=== PATIENT | female | born 1930 | race Caucasian/White ===

== ENCOUNTER 2018-03-28 21:20 | Inpatient (IN) | payer MEDICARE ==
[2018-03-28 21:46] LABS: #Eosinphils 0.1 thou/uL (0.0-0.7); #Lymphocytes 1.7 thou/uL (1.20-3.40); #Monocytes 0.9 thou/uL (0.11-0.59); #Neutrophils 6.5 thou/uL (1.40-6.50); %Basophils 0.5 % (0.0-1.0); %Eosinophils 0.6 % (0.0-10.0); %Monocytes 9.9 % (0.0-10.0); Hemoglobin 12.3 g/dL (12.0-16.0); Mean Corpuscular HGB CONC 33.8 g/dL (32.0-36.0); Mean Corpuscular Hemoglobin 29.4 pg (27.0-31.0); Mean Corpuscular Volume 87.1 fl (81.0-99.0); Platelet Count 309 thou/uL (130-400); RBC Distribution Width 12.6 % (11.5-14.5); Red Blood Cell (RBC) Count 4.17 mill/uL (4.20-5.40); White Blood Cell (WBC) Count 9.2 thou/uL (4.8-10.8)
[2018-03-28 22:18] LABS: CKMB 2.3 ng/mL (0-6.6); Troponin I Less than 0.010 ng/mL (< 0.028)
[2018-03-28] MEDS ORDERED: Diltiazem 125 MG/25 ML ONE (22:22)
[2018-03-28 22:23] LABS: ALT (SGPT) 11 U/L (8-55); AST (SGOT) 26 U/L (5-34); Albumin 3.8 g/dL (3.4-4.8); Alkaline Phosphatase 116 U/L (40-150); Anion Gap 15 mmol/L (10-20); BUN (Urea Nitrogen) 12 mg/dL (9.8-20.1); Bilirubin, Total 0.4 mg/dL (0.2-1.2); Calc. Creatinine Clearance 0 mL/min (70-130); Calcium 8.9 mg/dL (7.8-10.44); Carbon Dioxide 20 mmol/L (23-31); Chloride 103 mmol/L (98-107); Estimated GFR-MDRD 71; Globulin 3.9 g/dL (2.4-3.5); Glucose 111 mg/dL (83-110); Potassium 3.3 mmol/L (3.5-5.1); Protein, Total 7.7 g/dL (6.0-8.3); Sodium 135 mmol/L (136-145)
[2018-03-28] MEDS ORDERED: Diltiazem HCl 125 MG, Admixture Fee 1 EACH in Sodium Chloride 0.9% 100 ML IVPB SCH (22:45)
--- NOTE | 2018-03-28 22:56 | RAD ---
RADIOGRAPH CHEST 1 VIEW: HISTORY: An 87-year-old female with dyspnea and cough. FINDINGS: There is hyperinflation of the lungs, consistent with COPD. There is no evidence of air space densit y, pneumothorax, or pulmonary edema. The lateral costophrenic angles are sharp. IMPRESSION: 1) No acute pulmonary findings. 2) Emphysema. zac [] POS: [facility]
[2018-03-29 01:11] LABS: Troponin I 0.016 ng/mL (< 0.028)
[2018-03-29] MEDS ORDERED: Ondansetron ODT 4 MG TAB PO PRN (01:22)
[2018-03-29] MEDS ORDERED: Acetaminophen 325 MG TAB PO PRN (01:22)
[2018-03-29] MEDS ORDERED: HYDROcodone/Acetaminophen 5/325 mg Tablet PO PRN (01:22)
[2018-03-29 01:26] VITALS: BMI 18.0
--- NOTE | 2018-03-29 02:51 | HP ---
DATE OF ADMISSION: 03/29/2018 CHIEF COMPLAINT: Shortness of breath. HISTORY OF PRESENT ILLNESS: This is an 87-year-old white female with severe hearing loss with known history of atrial fibrillation and congestive heart failure. She came in from home with complaint of sudden onset of shortness of breath with no chest pain and which she was noted to have atrial fibril lation with RVR with a heart rate of 130 and she was started on Cardizem drip following a Cardizem yisel cristobal. The patient's rate was not controlled, so she was continued on the Cardizem drip and she was se en on the floor. She was alert and oriented, but she is very hard of hearing, unable to get any hist ory at this time. The patient's granddaughter was here, who did mention the patient is a DNR and thi s has been discussed. The patient was very comfortable, not having any chest pain at this time. No dizziness, no nausea, no vomiting or diarrhea. PAST MEDICAL HISTORY: 1. Hypertension. 2. Senile dementia. 3. History of ovarian malignancy. 4. History of fracture to the left cervical spine. 5. History of paroxysmal atrial fibrillation. 6. History of severe hearing loss. PAST SURGICAL HISTORY: Right hip surgery and hysterectomy. SOCIAL HISTORY: The patient is at residential. No history of alcohol, no history of illicit drug u se. Granddaughter is a power of deputy prosecuting attorney and this is confirmed today and she had confirmed about cod e status. The patient is a DNR. FAMILY HISTORY: No significant family history of coronary artery disease. Family history has been t horoughly reviewed. ALLERGIES: PSEUDOEPHEDRINE. HOME MEDICATIONS: 1. Lisinopril 10 mg p.o. daily. 2. Metoprolol 20 mg p.o. at bedtime. REVIEW OF SYSTEMS: Review of systems has been obtained and reviewed with the patient thoroughly and found to be negative at this time except the ones described in the HPI. The following complete revie w of systems was negative, unless otherwise mentioned in the HPI or below: Constitutional: Weight l oss or gain, sense of well-being, ability to conduct usual activities, exercise tolerance. Skin/[place] st: Rash, itching, changes in hair growth or loss, nail changes, breast lumps, tenderness, swelling, nipple discharge. Eyes: Vision, double vision, tearing, blind spots, pain. ENT/Mouth: Headaches (location, time of onset, duration, precipitating factors), vertigo, lightheadedness, injury. Vision, double vision, tearing, blind spots, pain, nose bleeding, colds, obstruction, discharge, dental diff iculties, gingival bleeding, dentures, neck stiffness, pain, tenderness, masses in thyroid or other a reas. Cardiovascular: Precordial pain, substernal distress, palpitations, syncope, dyspnea on exert ion, orthopnea, nocturnal paroxysmal dyspnea, edema, cyanosis, hypertension, heart murmurs, varicosit ies, phlebitis, claudication. Respiratory: Pain, shortness of breath, wheezing, stridor, cough, hem optysis, fever or night sweats. Gastrointestinal: Poor appetite, dysphagia, indigestion, abdominal pain, heartburn, eructation, nausea, vomiting, hematemesis, jaundice, constipation, or diarrhea, abno rmal stools (taj-colored, tarry, bloody, greasy, foul smelling), flatulence, hemorrhoids, recent anna nges in bowel habits. Genitourinary: Urgency, frequency, dysuria, nocturia, hematuria, polyuria, ol iguria, unusual (or change in) color of urine, stones, hesitancy, change in size of stream, dribbling , acute retention or incontinence, libido, potency. Musculoskeletal: Pain, swelling, redness or hea t of muscles or joints, limitation, of motion, muscular weakness, atrophy, cramps. Neurologic/Psychi atric: Convulsions, paralyses, tremor, incoordination, paresthesias, difficulties with memory of spe ech, sensory or motor disturbances, or muscular coordination (ataxia, tremor), emotional problems, an xiety, depression, previous psychiatric care, unusual perceptions, hallucinations. Allergy/Immunolog ic: Skin rash, anemia, bleeding tendency, polydipsia, polyuria, intolerance to heat or cold. PHYSICAL EXAMINATION: VITAL SIGNS: Blood pressure was 147/68, heart rate is 80, respirations 18, and saturation 98% on karina m air. GENERAL: The patient is moderately built and moderately nourished. She does not appear to be in acu te distress. She is alert, oriented x3. HEENT: Atraumatic, normocephalic. PERRLA. Extraocular movements are intact. CARDIOVASCULAR: S1, S2 normal. No murmurs, rubs or gallops. Irregularly irregular rhythm. LUNGS: Bilateral air entry was equal. No wheezing, no crackles. ABDOMEN: Soft, nontender, no guarding, no rebound tenderness. Bowel sounds normal. MUSCULOSKELETAL: No calf tenderness. No pedal edema. No joint tenderness, no joint swelling. SKIN: No cyanosis, no erythema, no rash, no pallor. CENTRAL NERVOUS SYSTEM: Cranial nerve examination II-XII intact. No focal deficits were noted. PSYCHIATRIC: No signs of suicidal ideation. No signs of milan. NECK: No thyromegaly, no JVD. LABORATORY DATA: WBC is 9.2, hemoglobin is 12.3, hematocrit is 36.3, platelets 309. Sodium is 135, potassium 3.3, chloride is 103, bicarbonate is 20, BUN is 12, creatinine is 0.77. BNP 134. Troponin 0.016. ASSESSMENT: 1. Atrial fibrillation with rapid ventricular rate. 2. Chronic congestive heart failure. No evidence of an exacerbation. 3. Hyponatremia. 4. Hypokalemia. 5. Type 2 diabetes mellitus. PLAN: 1. Plan is to closely monitor this patient. We will continue the Cardizem drip at this time and slo wly transitioned to p.o. Cardizem once the rate is controlled. We will do a 2D echo in the morning t o look for any evidence of wall motion abnormality or any worsening congestive heart failure. We madina l consult Cardiology at this time. 2. The patient has low sodium level, likely from hyponatremia. We will continue the patient on norm al saline at this time. 3. The patient has history of hypertension. We will restart the patient on lisinopril 10 mg p.o. da . 4. History of severe dementia and also has a history of severe hearing loss. 5. Deep venous thrombosis prophylaxis. Lovenox 40 mg subcutaneously daily. I spent 70 minutes with this patient.
[2018-03-29 05:39] LABS: #Basophils 0.1 thou/uL (0.0-0.2); #Eosinphils 0.1 thou/uL (0.0-0.7); #Lymphocytes 1.9 thou/uL (1.20-3.40); #Monocytes 0.7 thou/uL (0.11-0.59); #Neutrophils 3.1 thou/uL (1.40-6.50); %Eosinophils 1.5 % (0.0-10.0); %Lymphocytes 31.9 % (21.0-51.0); %Monocytes 12.8 % (0.0-10.0); %Neutrophils 52.8 % (42.0-75.0); Hemoglobin 11.5 g/dL (12.0-16.0); Mean Corpuscular HGB CONC 33.6 g/dL (32.0-36.0); Mean Corpuscular Hemoglobin 29.1 pg (27.0-31.0); Mean Corpuscular Volume 86.8 fl (81.0-99.0); Mean Platelet Volume 6.8 fL (7.4-10.4); Platelet Count 312 thou/uL (130-400); RBC Distribution Width 12.2 % (11.5-14.5); Red Blood Cell (RBC) Count 3.96 mill/uL (4.20-5.40); White Blood Cell (WBC) Count 5.8 thou/uL (4.8-10.8)
[2018-03-29 05:49] LABS: Anion Gap 10 mmol/L (10-20); BUN (Urea Nitrogen) 10 mg/dL (9.8-20.1); Calc. Creatinine Clearance 44 mL/min (70-130); Calcium 8.6 mg/dL (7.8-10.44); Carbon Dioxide 26 mmol/L (23-31); Chloride 107 mmol/L (98-107); Estimated GFR-MDRD 83; Glucose 105 mg/dL (83-110); Sodium 140 mmol/L (136-145)
[2018-03-29 05:53] LABS: Potassium 2.5 mmol/L (3.5-5.1)
[2018-03-29 06:07] LABS: Troponin I 0.032 ng/mL (< 0.028)
[2018-03-29] MEDS ORDERED: Potassium Chloride 20 MEQ TAB PO SCH (06:15)
[2018-03-29] MEDS ORDERED: Famotidine 20 MG TAB PO SCH (09:00)
[2018-03-29 10:34] LABS: Potassium 3.2 mmol/L (3.5-5.1)
[2018-03-29] MEDS: Docusate 100 MG CAP PO SCH ×2 (10:49→19:53)
[2018-03-29] MEDS: Lisinopril 10 MG TAB PO SCH (10:50)
[2018-03-29] MEDS: Enoxaparin Sodium 40 MG/0.4 ML SYRINGE SC SCH (10:50)
[2018-03-29] MEDS ORDERED: Diltiazem HCl 125 MG, Admixture Fee 1 EACH in Sodium Chloride 0.9% 100 ML IVPB SCH (15:00)
--- NOTE | 2018-03-29 15:51 | PDOC.EVN ---
Event Note - Event Note Event Note: Chart reviewed. Pt seen, will follow.
[2018-03-29] MEDS: Amiodarone 200 MG TAB PO SCH (19:53)
--- NOTE | 2018-03-29 22:38 | CON ---
HISTORY OF PRESENT ILLNESS: The patient is an 87-year-old woman with a history of paroxysmal atrial fibrillation who presented with palpitations and dyspnea. The patient has a history of paroxysmal atrial fibrillation. Sshe also suffers from dementia. The patient lives with her granddaughter. The patient's granddaughter noticed that she was very short of breath and reported having palpitations. PAST MEDICAL HISTORY: 1. Dementia. 2. Hypertension. 3. Paroxysmal atrial fibrillation. 4. History of ovarian malignancy. PAST SURGICAL HISTORY: Hysterectomy and hip surgery. SOCIAL HISTORY: She lives with her granddaughter. Nonsmoker. FAMILY HISTORY: No strong family history of heart disease. MEDICATIONS: Lisinopril 10 daily, metoprolol 25 XL daily. ALLERGIES: PSEUDOEPHEDRINE, PHENYLEPHRINE, and SUDAFED. REVIEW OF SYSTEMS: Ten-point system unremarkable. PHYSICAL EXAMINATION: GENERAL: This is an elderly woman in no acute distress. VITAL SIGNS: Blood pressure was 109/53. NECK: Showed no jugular vein distention. LUNGS: Clear to auscultation. HEART: Regular rate and rhythm. Normal S1, S2 with a 2/6 systolic ejection murmur. ABDOMEN: Nondistended. EXTREMITIES: No edema. VASCULAR: Radial pulses are 2+. LABORATORY RESULTS: Sodium was 140, potassium 3.2, chloride 107, bicarbonate 26 , BUN 10, creatinine 0.67, troponin was 0.032. BNP 134. White blood cell count 5.8, hemoglobin 11.5, hematocrit 34.4, platelets are 312,00. IMAGING: Her EKG revealed atrial fibrillation with a marked ST-T wave abnormality suggestive of ischemia. IMPRESSION: 1. Paroxysmal atrial fibrillation. 2. Hypertension. 3. Probable coronary artery disease. 4. Dementia. This woman with dementia presents with recurrent atrial fibrillation. She is a poor candidate due for anticoagulation with a history of falling according to her granddaughter and dementia. I would recommend that amiodarone be utilized to keep her out of atrial fibrillation to lower her risk of a thromboembolic event as well as to prevent ischemia. PLAN: 1. Discontinue IV Cardizem. 2. Start amiodarone. 3. Check echocardiogram. [facility]
[2018-03-30] MEDS: Docusate 100 MG CAP PO SCH ×2 (09:20→20:58)
[2018-03-30] MEDS: Enoxaparin Sodium 40 MG/0.4 ML SYRINGE SC SCH (09:20)
[2018-03-30] MEDS: Amiodarone 200 MG TAB PO SCH ×2 (09:21→20:57)
[2018-03-30] MEDS: Famotidine 20 MG TAB PO SCH (09:21)
[2018-03-30] MEDS: Lisinopril 10 MG TAB PO SCH (09:22)
--- NOTE | 2018-03-30 10:59 | PDOC.PN ---
- Subjective Encounter Start Date: 03/30/18 Encounter Start Time: 07:40 Pt seen for followup re: afib with rvr. Hard of hearing , unable to answer questions reliably due to dementia, unable to complete ROS. - Objective Resuscitation Status: Resuscitation Status DNR:Do Not Resuscitate MAR Reviewed: Yes Vital Signs & Weight: Vital Signs (12 hours) Temp Pulse Resp BP BP Pulse Ox 03/30/18 09:17 97.9 F 52 L 12 136/62 97 03/30/18 08:00 97.9 F 52 L 12 03/30/18 07:16 59 L 17 126/63 98 Weight Admit Weight 105 lb Weight 105 lb Result Diagrams: 03/29/18 04:53 03/29/18 09:54 EKG Reviewed by me: Yes (Tele: NSR) Phys Exam - Physical Examination Constitutional: NAD HEENT: moist MMs, sclera anicteric, oral pharynx no lesions, 2+ tonsils Neck: no nodes, no JVD, supple, full ROM Respiratory: no wheezing, no rales, no rhonchi, clear to auscultation bilateral Cardiovascular: RRR, no rub S1, S2 Gastrointestinal: soft, non-tender, no distention, positive bowel sounds Neurological: moves all 4 limbs Psychiatric: normal affect Deviation from normal: Unable to assess orientation to person, place or time Dx/Plan (1) Atrial fibrillation with RVR Code(s): I48.91 - UNSPECIFIED ATRIAL FIBRILLATION Status: Acute Comment: Pt is now in sinus rhythem, started on amiodarone (2) Hypokalemia Code(s): E87.6 - HYPOKALEMIA Status: Acute Comment: replace, recheck potassium level (3) Dementia Code(s): F03.90 - UNSPECIFIED DEMENTIA WITHOUT BEHAVIORAL DISTURBANCE Status: Chronic Comment: discussed with MPOCammie, trial Namenda (4) HTN (hypertension) Code(s): I10 - ESSENTIAL (PRIMARY) HYPERTENSION Status: Chronic Comment: controlled and at goal (5) Hyponatremia Code(s): E87.1 - HYPO-OSMOLALITY AND HYPONATREMIA Status: Resolved - Plan * . Review of Systems - Medications/Allergies Allergies/Adverse Reactions: Allergies Allergy/AdvReac Type Severity Reaction Status Date / Time pseudoephedrine Allergy Verified 02/21/16 14:43 Medications: Current Medications Acetaminophen (Tylenol) 650 mg PO Q4H PRN PRN Reason: Headache/Fever or Pain Hydrocodone Bitart/Acetaminophen ([place] 5/325) 1 tab PO Q4H PRN PRN Reason: Moderate Pain (4-6) Amiodarone HCl (Cordarone) 400 mg PO BID [facility] Last Admin: 03/30/18 09:21 Dose: 400 mg Docusate Sodium (Colace) 100 mg PO BID [facility] Last Admin: 03/30/18 09:20 Dose: 100 mg Enoxaparin Sodium (Lovenox) 40 mg SC 0900 [facility] Last Admin: 03/30/18 09:20 Dose: 40 mg Famotidine (Pepcid) 20 mg PO DAILY [facility] Last Admin: 03/30/18 09:21 Dose: 20 mg Lisinopril (Zestril) 10 mg PO DAILY [facility] Last Admin: 03/30/18 09:22 Dose: 10 mg Memantine (Namenda) 5 mg PO DAILY [facility] Memantine (Namenda) 5 mg PO ONE [facility] Stop: 03/30/18 11:00 Ondansetron HCl (Zofran Odt) 4 mg PO Q6H PRN PRN Reason: Nausea/Vomiting
--- NOTE | 2018-03-30 11:06 | PDOC.EVN ---
Event Note - Event Note Event Note: 8:00-8:35 AM. Discussed with MPOA granddaughter Abby Drake. Updated Ms. Drake re: ongoing medical issues, including a. fib and dementia. Informed her re: why pt was started on amiodarone and why patient is not on anticoagulation (risk of falls). MPOA would like for pt to trial dementia medications to see if it helps. Will start pt on Namenda. Also discussed goals of care and code status. Pt is DNR/DNI.
--- NOTE | 2018-03-30 13:43 | PQF ---
CLINICAL DOCUMENTATION IMPROVEMENT CLARIFICATION FORM: ICD-10 Updated PLEASE DO AN ADDENDUM TO THE PROGRESS NOTE WITH ANY DOCUMENTATION UPDATES OR ADDITIONS AND CARRY THROUGH TO DC SUMMARY. THANK YOU. DATE: 03/30/18 ATTN: Dr. Mederos Please exercise your independent, professional judgment in responding to the clarification form. Clinical indicators are provided on the bottom of this form for your review Please check appropriate box(s): HEART FAILURE: A. TYPE: [ ] Systolic / HFrEF [ X ] Diastolic / HFpEF [ ] Combined Systolic / Diastolic [ ] Other diagnosis [ ] Unable to determine For continuity of documentation, please document condition throughout progress notes and discharge summary. Thank You. CLINICAL INDICATORS - SIGNS / SYMPTOMS / LABS H&P 03/29: CHRONIC CONGESTIVE HEART FAILURE. NO EVIDENCE OF AN EXACERBATION. ECHO 03/29: EF CALCULATED 77.5% LEFT VENTRICLE: IMPAIRED RELAXATION COMPATIBLE W/ DIASTOLIC DYSFUNCTION RISKS: H&P: HX OF ATRIAL FIBRILLATION & CONGESTIVE HEART FAILURE. HTN. SENILE DEMENTIA. TREATMENT: CPOE 03/29: LISINOPRIL 10 MG PO DAILY _ Thank you, Angelica (This form is maintained as a part of the permanent medical record) 2014 [employer]. All Rights Reserved Angelica Bell RN, BSN [email or web address] Office: [phone] [facility]
[2018-03-31 08:45] LABS: #Eosinphils 0.1 thou/uL (0.0-0.7); #Lymphocytes 1.3 thou/uL (1.20-3.40); #Monocytes 0.4 thou/uL (0.11-0.59); #Neutrophils 2.9 thou/uL (1.40-6.50); %Basophils 0.5 % (0.0-1.0); %Eosinophils 1.4 % (0.0-10.0); %Lymphocytes 27.9 % (21.0-51.0); %Neutrophils 62.3 % (42.0-75.0); Hemoglobin 11.2 g/dL (12.0-16.0); Mean Corpuscular HGB CONC 33.7 g/dL (32.0-36.0); Mean Corpuscular Hemoglobin 29.5 pg (27.0-31.0); Mean Corpuscular Volume 87.4 fL (78.0-98.0); Mean Platelet Volume 6.5 fL (7.4-10.4); Platelet Count 275 thou/uL (130-400); RBC Distribution Width 12.3 % (11.5-14.5); Red Blood Cell (RBC) Count 3.81 mill/uL (4.20-5.40); White Blood Cell (WBC) Count 4.6 thou/uL (4.8-10.8)
[2018-03-31] MEDS: Famotidine 20 MG TAB PO SCH (08:46)
[2018-03-31] MEDS: Enoxaparin Sodium 40 MG/0.4 ML SYRINGE SC SCH (08:46)
[2018-03-31] MEDS: Lisinopril 10 MG TAB PO SCH (08:47)
[2018-03-31] MEDS: Amiodarone 200 MG TAB PO SCH ×2 (08:47→20:47)
[2018-03-31] MEDS: Docusate 100 MG CAP PO SCH ×2 (08:47→20:48)
[2018-03-31 09:00] LABS: Anion Gap 12 mmol/L (10-20); BUN (Urea Nitrogen) 18 mg/dL (9.8-20.1); Calc. Creatinine Clearance 39 mL/min (70-130); Calcium 8.6 mg/dL (7.8-10.44); Carbon Dioxide 25 mmol/L (23-31); Chloride 104 mmol/L (98-107); Estimated GFR-MDRD 72; Glucose 115 mg/dL (83-110); Sodium 138 mmol/L (136-145)
[2018-03-31] MEDS ORDERED: Megestrol Acetate 40 MG TAB PO SCH (09:00)
[2018-03-31 09:06] LABS: Potassium 2.9 mmol/L (3.5-5.1)
[2018-03-31] MEDS: Potassium Chloride 20 MEQ TAB PO SCH ×2 (10:33→19:31)
[2018-03-31] MEDS ORDERED: Potassium Chloride 40 MEQ in Premix Bag 1 BAG IVPB SCH (12:30)
[2018-03-31] MEDS: Potassium Chloride 20 MEQ in Premix Bag 1 BAG IVPB SCH ×2 (14:06→19:30)
--- NOTE | 2018-03-31 14:41 | PDOC.PN ---
- Subjective Encounter Start Date: 03/31/18 Encounter Start Time: 08:20 Pt seen for followup re: hypokalemia. Awake, alert, answering questions. Denies chest pain, shortness of breath, fevers or chills. - Objective Resuscitation Status: Resuscitation Status DNR:Do Not Resuscitate MAR Reviewed: Yes Vital Signs & Weight: Vital Signs (12 hours) Temp Pulse Resp BP BP Pulse Ox 03/31/18 08:47 137/64 03/31/18 08:43 98.1 F 69 12 137/64 99 03/31/18 08:00 98.1 F 69 12 03/31/18 03:36 98.5 F 64 16 167/77 H 100 Weight Admit Weight 105 lb Weight 105 lb Result Diagrams: 03/31/18 08:28 03/31/18 08:28 EKG Reviewed by me: Yes (Tele: NSR) Phys Exam - Physical Examination Constitutional: NAD HEENT: moist MMs Neck: supple Respiratory: clear to auscultation bilateral Cardiovascular: RRR Gastrointestinal: positive bowel sounds Neurological: moves all 4 limbs Psychiatric: normal affect Dx/Plan (1) Hypokalemia Code(s): E87.6 - HYPOKALEMIA Status: Acute Comment: Replace potassium IV, recheck level (2) Dementia Code(s): F03.90 - UNSPECIFIED DEMENTIA WITHOUT BEHAVIORAL DISTURBANCE Status: Chronic Comment: continue Namenda (3) HTN (hypertension) Code(s): I10 - ESSENTIAL (PRIMARY) HYPERTENSION Status: Chronic Comment: Monitor vital signs, titrate antihypertensives as needed. (4) Hyponatremia Code(s): E87.1 - HYPO-OSMOLALITY AND HYPONATREMIA Status: Resolved (5) Atrial fibrillation with RVR Code(s): I48.91 - UNSPECIFIED ATRIAL FIBRILLATION Status: Resolved Comment: Pt is now in sinus rhythm, continue amiodarone - Plan * . Review of Systems - Review of Systems Cardiovascular: negative: chest pain, palpitations, orthopnea, paroxysmal nocturnal dyspnea, edema, light headedness Gastrointestinal: negative: Nausea, Vomiting, Abdominal Pain, Diarrhea, Constipation, Melena, Hematochezia - Medications/Allergies Allergies/Adverse Reactions: Allergies Allergy/AdvReac Type Severity Reaction Status Date / Time pseudoephedrine Allergy Verified 02/21/16 14:43 Medications: Current Medications Acetaminophen (Tylenol) 650 mg PO Q4H PRN PRN Reason: Headache/Fever or Pain Last Admin: 03/30/18 21:14 Dose: 650 mg Hydrocodone Bitart/Acetaminophen ([place] 5/325) 1 tab PO Q4H PRN PRN Reason: Moderate Pain (4-6) Amiodarone HCl (Cordarone) 200 mg PO BID [facility] Last Admin: 03/31/18 08:47 Dose: 200 mg Docusate Sodium (Colace) 100 mg PO BID [facility] Last Admin: 03/31/18 08:47 Dose: 100 mg Enoxaparin Sodium (Lovenox) 40 mg SC 0900 [facility] Last Admin: 03/31/18 08:46 Dose: 40 mg Famotidine (Pepcid) 20 mg PO DAILY [facility] Last Admin: 03/31/18 08:46 Dose: 20 mg Potassium Chloride 20 meq/ (Device) 100 mls @ 50 mls/hr IVPB Q2H [facility] Stop: 03/31/18 16:59 Last Admin: 03/31/18 14:06 Dose: 100 mls Lisinopril (Zestril) 10 mg PO DAILY [facility] Last Admin: 03/31/18 08:47 Dose: 10 mg Megestrol Acetate (Megace) 40 mg PO DAILY [facility] Last Admin: 03/31/18 08:49 Dose: 40 mg Memantine (Namenda) 5 mg PO DAILY [facility] Last Admin: 03/31/18 08:47 Dose: 5 mg Ondansetron HCl (Zofran Odt) 4 mg PO Q6H PRN PRN Reason: Nausea/Vomiting Sodium Chloride (Flush - Normal Saline) 10 ml IVF Q12HR [facility] Sodium Chloride (Flush - Normal Saline) 10 ml IVF PRN PRN PRN Reason: Saline Flush
[2018-03-31] MEDS ORDERED: Potassium Chloride 20 MEQ in Sodium Chloride 0.9% 250 ML 250 ML IVPB SCH (16:00)
[2018-03-31 18:40] LABS: Potassium 3.5 mmol/L (3.5-5.1)
[2018-03-31] MEDS ORDERED: Potassium Chloride 20 MEQ TAB PO SCH (19:45)
[2018-04-01 05:09] LABS: #Basophils 0.1 thou/uL (0.0-0.2); #Eosinphils 0.1 thou/uL (0.0-0.7); #Monocytes 0.6 thou/uL (0.11-0.59); #Neutrophils 3.1 thou/uL (1.40-6.50); %Eosinophils 1.5 % (0.0-10.0); %Monocytes 10.5 % (0.0-10.0); Hemoglobin 10.5 g/dL (12.0-16.0); Mean Corpuscular HGB CONC 32.6 g/dL (32.0-36.0); Mean Corpuscular Hemoglobin 28.9 pg (27.0-31.0); Mean Corpuscular Volume 88.6 fL (78.0-98.0); Platelet Count 269 thou/uL (130-400); RBC Distribution Width 12.5 % (11.5-14.5); Red Blood Cell (RBC) Count 3.65 mill/uL (4.20-5.40); White Blood Cell (WBC) Count 5.9 thou/uL (4.8-10.8)
[2018-04-01 05:29] LABS: Anion Gap 10 mmol/L (10-20); BUN (Urea Nitrogen) 13 mg/dL (9.8-20.1); Calc. Creatinine Clearance 44 mL/min (70-130); Calcium 8.6 mg/dL (7.8-10.44); Carbon Dioxide 21 mmol/L (23-31); Chloride 110 mmol/L (98-107); Estimated GFR-MDRD 83; Glucose 96 mg/dL (83-110); Sodium 137 mmol/L (136-145)
[2018-04-01 09:23] VITALS: TEMP 98.5
[2018-04-01] MEDS: Famotidine 20 MG TAB PO SCH (09:25)
[2018-04-01] MEDS: Amiodarone 200 MG TAB PO SCH (09:25)
[2018-04-01] MEDS: Lisinopril 10 MG TAB PO SCH (09:26)
[2018-04-01] MEDS: Enoxaparin Sodium 40 MG/0.4 ML SYRINGE SC SCH (09:27)
[2018-04-01] MEDS: Docusate 100 MG CAP PO SCH (09:27)
[2018-04-01 09:29] VITALS: BP 137/64
--- NOTE | 2018-04-01 13:54 | DIS ---
PRIMARY CARE PHYSICIAN: Dr. Jessica Wei DATE OF ADMISSION: 03/29/2018 DATE OF DISCHARGE: 04/01/2018 DISCHARGE DIAGNOSES: 1. Atrial fibrillation with rapid ventricular response. 2. Moderate protein calorie malnutrition. 3. Diastolic congestive heart failure. 4. Dementia. 5. Hypokalemia. CONDITION OF PATIENT AT TIME OF DISCHARGE: Stable. I assessed Ms. Self on the day of discharge. She denies any chest pain or shortness of breath. V ital signs are stable. S1 and S2 are heard, regular. Lungs are clear to auscultation bilaterally. CONSULTATIONS DURING THIS HOSPITALIZATION: Cardiology, Dr. Paz. HOSPITAL COURSE: Ms. Self is a pleasant 87-year-old lady who was admitted to [facility] on 03/29/2018 for atrial fibrillation with rapid ventricular response. She was started on Cardizem drip. She spontaneously converted to normal sinus rhythm. She was seen by Cardiology Daquan stewart. A 2D echocardiogram showed left ventricular ejection fraction of 65-70%, normal sized left a trium, normal sized left ventricle, impaired relaxation compatible with diastolic dysfunction and mil d aortic stenosis. She was not started on anticoagulation by Cardiology Service because of risk of f alls. She was started on Namenda for dementia. She was also seen by a dietitian for a moderate protein aide orie malnutrition and has been started on a trial of Megace for 10 days. She is advised to continue Ensure as she was previously taking it at home. She was started on amiodarone during this hospitalization. DISCHARGE MEDICATIONS: Amiodarone 200 mg 2 times a day for 13 more days, then 200 mg daily, lisinopr il 10 mg daily, Megace 40 mg daily, Namenda 5 mg daily, and Toprol-XL 25 mg daily. Many thanks for allowing me to participate in your patient's care. Please feel free to contact me wi th any questions or concerns. DISCHARGE DESTINATION: Home. TOTAL AMOUNT OF TIME SPENT COORDINATING THIS DISCHARGE: 31 minutes.
== END 2018-04-01 11:18 | disposition home or self-care (01) | DRG 309 ==
LOC: ERS 21:20 → 2NO 23:08
PROVIDERS: ADMIT Family Medicine; ATTEND Family Medicine
DX: I48.0 Paroxysmal atrial fibrillation (principal); E87.1 Hypo-osmolality and hyponatremia; I50.32 Chronic diastolic (congestive) heart failure; E44.0 Moderate protein-calorie malnutrition; Z68.1 Body mass index [BMI] 19.9 or less, adult; H91.90 Unspecified hearing loss, unspecified ear; Z66 Do not resuscitate; I10 Essential (primary) hypertension; F03.90 Unspecified dementia, unspecified severity, without behavioral disturbance, psychotic disturbance, mood disturbance, and anxiety; Z85.43 Personal history of malignant neoplasm of ovary; Z79.899 Other long term (current) drug therapy; Z88.8 Allergy status to other drugs, medicaments and biological substances; E87.6 Hypokalemia; E11.9 Type 2 diabetes mellitus without complications; Z91.81 History of falling; I25.10 Atherosclerotic heart disease of native coronary artery without angina pectoris
CPT/HCPCS: 36415; 71045; 80048; 80053; 82553; 83880; 84484; 85025; 85379; 93005; 93010; 93306; 96365; 96376; A4216; G8978-GP-CK; G8979-GP-CK; G8980-GP-CK; G8987-GO-CI; G8988-GO-CI; G8989-GO-CI; J1650; J3480; J7050; S0179

== ENCOUNTER 2018-07-04 17:21 | Inpatient (IN) | payer MEDICARE ==
[~2018-07-04 17:21] MED LIST: ISOVUE-370 76%-LOCM 1 ML ONE
[2018-07-04 18:02] LABS: #Basophils 0.1 thou/uL (0.0-0.2); #Eosinphils 0.1 thou/uL (0.0-0.7); #Monocytes 0.5 thou/uL (0.11-0.59); #Neutrophils 9.1 thou/uL (1.40-6.50); %Basophils 0.5 % (0.0-1.0); %Eosinophils 0.9 % (0.0-10.0); %Lymphocytes 17.2 % (21.0-51.0); %Monocytes 3.9 % (0.0-10.0); %Neutrophils 77.5 % (42.0-75.0); Hemoglobin 11.9 g/dL (12.0-16.0); Mean Corpuscular HGB CONC 31.6 g/dL (32.0-36.0); Mean Corpuscular Hemoglobin 28.1 pg (27.0-31.0); Mean Corpuscular Volume 89.2 fL (78.0-98.0); Mean Platelet Volume 7.9 fL (7.4-10.4); Platelet Count 223 thou/uL (130-400); RBC Distribution Width 13.5 % (11.5-14.5); Red Blood Cell (RBC) Count 4.23 mill/uL (4.20-5.40); White Blood Cell (WBC) Count 11.7 thou/uL (4.8-10.8)
[2018-07-04 18:03] LABS: ALT (SGPT) 23 U/L (8-55); AST (SGOT) 21 U/L (5-34); Albumin 3.7 g/dL (3.4-4.8); Alkaline Phosphatase 107 U/L (40-150); Anion Gap 14 mmol/L (10-20); BUN (Urea Nitrogen) 12 mg/dL (9.8-20.1); Bilirubin, Total 0.6 mg/dL (0.2-1.2); CK (CPK) 122 U/L (29-168); Calc. Creatinine Clearance 0 mL/min (70-130); Calcium 8.6 mg/dL (7.8-10.44); Carbon Dioxide 20 mmol/L (23-31); Chloride 104 mmol/L (98-107); Estimated GFR-MDRD 47; Globulin 3.4 g/dL (2.4-3.5); Glucose 206 mg/dL (83-110); Lipase 28 U/L (8-78); Magnesium 2.1 mg/dL (1.6-2.6); Potassium 3.3 mmol/L (3.5-5.1); Protein, Total 7.1 g/dL (6.0-8.3); Sodium 135 mmol/L (136-145)
[2018-07-04] MEDS ORDERED: Naloxone HCl 0.4 mg/ml Vial ONE (18:06)
[2018-07-04 18:08] LABS: CKMB 2.2 ng/mL (0-6.6); Troponin I Less than 0.010 ng/mL (< 0.028)
[2018-07-04 18:09] LABS: Acetaminophen Less than 6.0 mcg/mL (10.0-30.0); Alcohol Less than 10 mg/dL (Less than 10); Salicylate Less than 8.0 mg/dL (15.0-30.0)
[2018-07-04 18:15] LABS: Prothrombin Time 13.3 SEC (12.0-14.7)
[2018-07-04 18:16] LABS: Amphetamine Not Detected (NotDetected); Barbiturates Screen Not Detected (NotDetected); Benzodiazepine Screen Not Detected (NotDetected); Cocaine Metabolite Screen Not Detected (NotDetected); Medtox Control Line Valid? VALID (VALID); Medtox Reader # READER 4; Methadone Not Detected (NotDetected); Methamphetamine Not Detected (NotDetected); Opiate Screen Not Detected (NotDetected); Oxycodone Screen Not Detected (NotDetected); Phencyclidine (PCP) Not Detected (NotDetected); THC/Cannabinoid Screen Not Detected (NotDetected); Tricyclic Screen Not Detected (NotDetected)
--- NOTE | 2018-07-04 19:38 | CT ---
CT BRAIN NONCONTRAST: 07/04/2018 5:32 p.m. HISTORY: An 87-year-old female with altered mental status, found down on the ground, unconscious. Dr. Marquez called this acute stroke alert protocol report to Dr. Villagran at 5:46 p.m. on 07/04/2018. COMPARISON: 02/22/2016 FINDINGS: There is no midline shift or any other mass effect. There is no evidence of acute intracranial hemor rhage, obstructive hydrocephalus, or extraaxial fluid collection. The calvarium is intact. There is diffuse parenchymal volume loss. There are low attenuation areas in the white matter. These are no nspecific, but in a patient of this age, they are probably chronic ischemic white matter changes due to microvascular atherosclerosis. Again noted is the old lacunar infarction, beginning at the superi or edge of the right basal ganglia and involving the right gomez radiata, including the right perive ntricular white matter. There is also a cluster of small, old infarctions in the right cerebellar he misphere, which are new since the previous CT of 02/22/2016. IMPRESSION: 1) No acute intracranial findings. 2) Involutional changes and chronic ischemic white matter changes. 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 CODE CR jn [] POS: [facility]
--- NOTE | 2018-07-04 19:41 | CT ---
CT CERVICAL SPINE NONCONTRAST: HISTORY: An 87-year-old female status post acute cervical trauma from fall. FINDINGS: There are no jumped or perched facets. There is no evidence of acute fracture. The vertebral body h eights are maintained. There is no prevertebral soft tissue swelling. IMPRESSION: No evidence of acute fracture or acute traumatic subluxation. zac [] POS: [facility]
[2018-07-04 19:42] LABS: Base Excess-Venous -2.4 mmol/L (0 (+/- 2.5)); Bicarbonate (HCO3v) 20.3 mmol/L (1.0-85.0); CO2 Tension (PvCO2) 28.5 mmHg (41.0-51.0); Calcium, Ionized 0.99 mmol/L (1.12-1.32); Hemoglobin - Calc 12.6 g/dL (12.0-18.0); Lactate 3.22 mmol/L (0.50-2.20); O2 Tension (PvO2) 62.7 mmHg (35.0-45.0); Potassium 3.7 mmol/L (3.4-4.7); T. Carbon Dioxide 21.2 mmol/L (1.0-85.0); pH (Venous) 7.462 (7.35-7.45); vO2 Saturation-calc 93.3 % (94-98)
--- NOTE | 2018-07-04 19:58 | RAD ---
TWO VIEWS LEFT HUMERUS: History: Pain. Fall. FINDINGS: There is a displaced greater tuberosity fracture involving the proximal left humerus. IMPRESSION: Proximal left humerus fracture. POS: [facility]
--- NOTE | 2018-07-04 19:59 | RAD ---
CHEST ONE VIEW: Comparison: 03-28-18 History: Altered mental status. FINDINGS: Slight elongation of the aorta. Normal cardiac silhouette. The pulmonary vessels and hilum are normal . Costophrenic angles are clear. Lungs are hyperinflated with chronic changes. No consolidation, pneu mothorax. There appears to be an acute left humeral fracture. IMPRESSION: 1. No acute cardiopulmonary process. 2. Acute left humeral fracture. POS: [facility]
--- NOTE | 2018-07-04 20:00 | RAD ---
THREE VIEWS LEFT SHOULDER: History: Fall. Pain. Comparison: None. FINDINGS: There is a displaced greater tuberosity fracture. Glenohumeral joint space is preserved. Visualized l eft ribs are unremarkable for post-traumatic change. IMPRESSION: Greater tuberosity fracture along the proximal left humerus. POS: [facility]
--- NOTE | 2018-07-04 20:01 | RAD ---
LEFT CLAVICLE TWO VIEWS: History: Fall. Pain. Comparison: None. FINDINGS: There is a proximal humerus fracture which has already been described. With regard to the clavicle, n o fracture. There are degenerative changes of the left acromioclavicular joint space. IMPRESSION: No left clavicle fracture. POS: [facility]
[2018-07-04 20:23] LABS: CO2 Tension 29.4 mmHg (35.0-45.0); pH, Arterial 7.42 (7.35-7.45)
[2018-07-04 20:24] LABS: Actual Bicarbonate (HCO3a) 18.5 mEq/L (22-28); Carboxyhemoglobin (COHb) 0.3 gm% (0.0-3.0); Hemoglobin (Hb) 11.4 g/dL (12.0-16.0); O2 Tension (PaO2) 48.3 mmHg (> 60.0)
[2018-07-04 20:25] LABS: Analyzer IN Cardio ER; Potassium - ABG Lab 3.12 mmol/L (3.70-5.30); Puncture Site RRA
[2018-07-04 21:22] LABS: Lactic Acid 2.7 mmol/L (0.5-2.2)
[2018-07-04] MEDS ORDERED: Ondansetron HCl/PF 4 MG/2 ML Vial ONE (21:26)
--- NOTE | 2018-07-04 21:27 | CT ---
CT THORAX WITH CONTRAST CT ABDOMEN WITH CONTRAST CT PELVIS WITH CONTRAST: (trauma protocol) 07/04/2018 7:41 p.m. HISTORY: An 87-year-old female, status post acute trauma to the chest, abdomen, and pelvis from a fall today. TECHNIQUE: IV administration of iodinated contrast media. No oral contrast media. Single phase scans of thorax, abdomen, and pelvis. Sagittal reconstructions of thoracic and lumbar spine. FINDINGS: Thorax: No pneumothorax or pleural effusion. Nondependent, mildly increased attenuation in the posterior, de pendent portions of the bilateral lower lobe pulmonary parenchyma. No consolidation. No pulmonary c ontusion. No thoracic aortic dissection or aneurysm. No mediastinal hematoma or lymphadenopathy. Abdomen: No abdominal aortic rupture or dissection. No evidence of traumatic injury to the kidneys, pancreas, adrenals, liver, or spleen. No free fluid within the abdominal cavity. No retroperitoneal hematoma . Pelvis: Metallic right hip replacement prosthesis produces streak artifact that obscures portions of the pelv ic cavity. There is an impacted left subcapital femoral neck fracture. No dislocation. No other fr acture is identified, although the severe diffuse osteopenia could mask a nondisplaced fracture. Thoracic and lumbar spine: Vertebral body heights are maintained. There is multilevel degenerative disk disease in the lumbar s pine. IMPRESSION: 1. Impacted and mildly angulated left subcapital femoral neck fracture, traumatic, and probably acut e. 2. Status post total right hip replacement arthroplasty. 3. Lumbar spondylosis. LIANA Yanez POS: [facility]
--- NOTE | 2018-07-04 21:58 | RAD ---
RADIOGRAPH PELVIS ONE VIEW: 07/04/2018 9:33 p.m. HISTORY: An 87-year-old female with femoral neck fracture due to fall. FINDINGS: There is an impacted fracture at the subcapital region of the left femoral neck. There is a right hi p replacement metallic prosthesis. There is contrast material filling the urinary bladder, nondilate d bilateral renal collecting systems, and left ureter, from recent CT. An air-filled prominent bowel loop is visualized centrally. The pelvic ring appears to be grossly intact with no evidence of a gr ossly displaced fracture, although the osteopenia could obscure a fracture. Degenerative disk diseas e at multiple levels in the lumbar spine. IMPRESSION: 1. Traumatic, impacted, subcapital left femoral neck fracture, presumably acute. 2. Status post total right hip replacement arthroplasty. 3. Osteopenia. 4. Lumbar spondylosis. POS: [facility]
--- NOTE | 2018-07-04 21:59 | RAD ---
RADIOGRAPH LEFT HIP TWO VIEWS: 07/04/2018 9:36 p.m. HISTORY: An 87-year-old female status post fall. FINDINGS: There is a subcapital fracture of the left femoral neck with impaction. No dislocation. Femoral hea d contour is maintained. IMPRESSION: Impacted subcapital left femoral neck fracture, traumatic and probably acute. POS: [facility]
[2018-07-04 22:14] LABS: Bilirubin Negative (Negative); Blood, Urine Small (Negative); Clarity CLEAR (Clear); Glucose, Urine (Dipstick) 100 mg/dL (Negative); Leukocyte Negative (Negative); Nitrite Negative (Negative); Protein, Urine (Dipstick) Trace mg/dL (Neg-Trace); pH, Urine 6.5 (5.0-9.0)
[2018-07-04 22:17] LABS: Bacteria/HPF None Seen HPF (None Seen); Hyaline Casts/LPF 7-10 HYALINE CAST LPF (0-3 Hyaline); Pathc Cast-AUWi Flag 0.72 (0-2.49); Squamous Epithelial 0-3 HPF (0-3); WBC/HPF 0-3 HPF (0-3)
[2018-07-04 22:19] LABS: Specific Gravity, Urine 1.054 (1.002-1.036)
[2018-07-04] MEDS ORDERED: traMADol HCl 50 MG TAB PO PRN (23:05)
[2018-07-04] MEDS ORDERED: Ondansetron HCl/PF 4 MG/2 ML Vial IVP PRN (23:26)
[2018-07-04] MEDS ORDERED: Ondansetron ODT 4 MG TAB SL PRN (23:26)
[2018-07-04] MEDS ORDERED: HYDROcodone/Acetaminophen 5/325 mg Tablet PO PRN ×2 (23:26)
[2018-07-04] MEDS ORDERED: Acetaminophen 325 MG TAB PO PRN (23:26)
[2018-07-04] MEDS ORDERED: hydrALAZINE 20 MG/ML VIAL SLOW IVP PRN (23:44)
[2018-07-04] MEDS ORDERED: Dextrose 50% Abboject 50 ML SYRINGE SLOW IVP PRN (23:44)
[2018-07-04] MEDS ORDERED: Dextrose 5% in Water 1,000 ML IV PRN (23:44)
[2018-07-05] MEDS: traMADol HCl 50 MG TAB PO SCH ×4 (00:05→17:25)
[2018-07-05 00:15] LABS: Lactic Acid 2.4 mmol/L (0.5-2.2)
[2018-07-05] MEDS: Sodium Chloride 0.9% 1,000 ML IV SCH ×2 (00:39→17:24)
[2018-07-05] MEDS: Ketorolac Tromethamine 30 MG/ML VIAL IVP SCH ×5 (00:39→23:22)
[2018-07-05] MEDS: Acetaminophen 1,000 MG in Premix Bag 1 BAG IVPB SCH ×5 (00:44→23:22)
[2018-07-05 01:05] VITALS: BMI 16.5
--- NOTE | 2018-07-05 01:52 | CON ---
DATE OF CONSULTATION: 07/05/2018 CHIEF COMPLAINT: Fall. History of present illness from granddaughter and electronic medical records. HISTORY OF PRESENT ILLNESS: This is an 87-year-old female with past medical history of atrial fibril lation, hypertension, ovarian malignancy being admitted for status post fall. Per the granddaughter, patient was at home around 1630, patient fell. The fall was unwitnessed. Per daughter, her was in the house when this event of fall happened. Patient was in her room and normally patient lik es to stand on the chair, so they are assuming the patient sit on the chair and patient fell from the chair and patient crawled from her room all the way to where the daughter's was started scre aming. The patient was then brought to the emergency room. In the emergency room, imaging was done which showed that patient do have left hip fracture. REVIEW OF SYSTEMS: At this point, patient denies any headaches, nausea, vomiting, chest pain, abdomi nal pain, hip pain. All other systems are reviewed and are negative. PAST MEDICAL HISTORY: Hypertension; malignancy sites ovaries, status post surgery; dementia. PAST SURGICAL HISTORY: Right hip surgery, hysterectomy. PSYCHIATRIC HISTORY: No previous psychiatric history. SOCIAL HISTORY: Patient denies alcohol, denies any drug use and denies any smoking history. Patient lives at home with granddaughter. Patient is demented. FAMILY HISTORY: Reviewed and noncontributory. KNOWN ALLERGIES: PHENYLEPHRINE and SUDAFED. CURRENT MEDICATIONS: Patient is on lisinopril 5 mg, metoprolol 50 mg, amiodarone 100 mg, Aricept 10 mg. PHYSICAL EXAMINATION: VITAL SIGNS: Blood pressure 104/61, pulse 56, respiratory rate of 16, temperature of 97.5, oxygen sa turation of 96. GENERAL APPEARANCE: Patient is lying in bed, very cachectic, frail appearing, soft spoken, does not appear to be in any distress. Patient denies any pain at this time. HEENT: Normocephalic, atraumatic. Pupils are equally round and reactive to light. Extraocular move ments are intact. Mucous membranes are dry. NECK: Trachea is midline. No JVDs. Neck is supple. LUNGS: Clear to auscultation bilaterally. No wheezing, no rales, no rhonchi is appreciated. CARDIOVASCULAR: Positive S1, S2. Regular rate and rhythm. No murmurs, no gallops or rubs appreciat ed. ABDOMEN: Scalloped abdomen, nondistended, nontender, no masses palpated. EXTREMITIES: Upper extremity, patient do have 5/5 upper extremity strength and good pulses bilateral ly. Lower extremity, patient do have 5/5. Lower extremity, no edema. Good pulses. NEUROLOGIC: Cranial nerves II-XII grossly intact. No neurologic deficits noted. Patient is awake, alert, oriented x1. Patient is demented. SKIN: Warm, dry, and intact. LABORATORY DATA: EKG, 12-lead EKG showed sinus bradycardia. ED COURSE: Patient was given normal saline 500 mL, Zofran 8 mg and Narcan 0.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 2. Cervical spine CT showed no evidence of acute fracture or acute traumatic subluxation. 3. Chest x-ray, no acute cardiopulmonary process. 4. Shoulder x-ray greater tuberosity fracture along the proximal left humerus. 5. Clavicle x-ray showed no left clavicle fracture. 6. Humerus x-ray showed proximal left humerus fracture. 7. Chest, abdomen, and pelvis CT showed impacted and mildly angulated left subcapital femoral neck f racture, traumatic and probable acute status post total right hip replacement arthroplasty, lumbar sp ondylosis. 8. Hip x-ray showed impacted subcapital left femoral neck fracture, traumatic and probably acute. 9. Pelvic x-ray showed traumatic impacted subcapital left femoral neck fracture, presumably acute st atus post total hip replacement arthroplasty, osteopenia, lumbar spondylosis. LABORATORY DATA: WBC 11.7, hemoglobin 11.9, hematocrit 37.7, platelet count 223. PT 13.3, INR 1.0. ABGs: pH is 7.4, pCO2 of 29.4, pO2 of 48. Sodium 135, potassium 3.7, chloride 106, carbon dioxide of 20, BUN is 12, creatinine is 1.09, glucose of 206. BNP is 159. TSH is . Negative for nitri dina, negative leukoesterase. ASSESSMENT AND PLAN: This is an 87-year-old female status post fall. At this time, imaging has conf irmed the patient do have left hip fracture. Orthopedics is on consult and then we have been consult ed to medically optimize the patient for possible surgery. At this point, TSH is very elevated. We will get T4. Also, patient do have history of arrhythmias and patient is on amiodarone. We will get an echocardiogram due to patient's age and we will get Cardiology for cardiology clearance. We will follow up morning labs. 1. History of hypertension. We will monitor patient's blood pressure closely. 2. Deep venous thrombosis and gastrointestinal prophylaxis.
--- NOTE | 2018-07-05 02:59 | HP ---
DATE OF SERVICE: 07/05/2018 SUBJECTIVE: This is an 87-year-old female who presented to [facility] via POV status post unwitne ssed fall. The patient has a history of dementia therefore, the majority of the history was obtained from records review and some from the patient's granddaughter. Per family, patient was in her room and cried for help and was found on the floor. She was seemed altered at that time and was brought t o the emergency room. She was evaluated in the emergency room and eventually found to have a left fe moral neck fracture and a left proximal humerus fracture. Upon my evaluation, the patient is oriente d to self only. ALLERGIES: PSEUDOEPHEDRINE. HOME MEDICATIONS: Include lisinopril 10 mg p.o. daily, Namenda 5 mg p.o. daily, Toprol-XL 50 mg q.a. m., amiodarone 200 mg b.i.d. PAST MEDICAL HISTORY: Significant for dementia, hypertension, atrial fibrillation and a remote histo ry of ovarian cancer. PAST SURGICAL HISTORY: Right hip surgery and hysterectomy. SOCIAL HISTORY: Lives at home with granddaughter and [id number]-uf-[id number]. Denies tobacco or illicit abhishek g use. REVIEW OF SYSTEMS: Unobtainable, but family states patient has been normal self prior to her acciden t. FAMILY HISTORY: Noncontributory. PHYSICAL EXAMINATION: VITAL SIGNS: Blood pressure 118/69, pulse 62, respiration rate 18, O2 sat 100% on 2 liters nasal can nula, temperature 97.8. GENERAL: Elderly appearing female in no acute distress, resting in bed. However, patient becomes qu ite agitated and does not wish to participate in physical exam. She will frequently attempt to strik e anybody who tries to examine her. HEENT: Appears normocephalic, atraumatic. EYES: Extraocular movements are intact. CHEST: Normal work of breathing. Symmetric rise. CARDIOVASCULAR: Regular rate and rhythm. GASTROINTESTINAL: Abdomen is soft, nontender, nondistended. MUSCULOSKELETAL: Left lower extremity is shortened and somewhat externally rotated. Left upper extr emity range of motion limited secondary to pain. NEUROLOGIC: No focal deficit is noted. Patient is oriented to self only. LABORATORY FINDINGS: WBC 11.7, hemoglobin 11.9, hematocrit 37.7, platelet count 223. INR is 1.0. A BG demonstrated bicarbonate 18.5, CO2 of 29.4, pO2 of 48.3. Sodium 135, potassium 3.3, chloride 104, carbon dioxide 20, BUN 12, creatinine 1.09, glucose 206. AST and ALT within normal limits. Troponi n less than 0.010. BNP 159. TSH 8.3765. Urinalysis significant for glucosuria, trace ketonuria and some RBCs. Toxicology and drug screen were unremarkable. RADIOLOGIC FINDINGS: CT of the brain was negative for acute intracranial abnormality. CT of the [place] was negative for acute fracture or dislocation. Chest x-ray demonstrated hyperinflated lungs wi th coarse interstitial markings and evidence of a left humerus fracture. Shoulder x-ray and clavicle x-ray demonstrated left humerus fracture. Left humerus x-ray demonstrated left proximal humerus fra cture. CT of the chest, abdomen, and pelvis showed a left subcapital femoral neck fracture. X-ray o f the left hip demonstrated the same. X-ray of the pelvis demonstrated the same. EKG with nonspecif ic T-wave changes, QT prolongation first-degree AV block. ASSESSMENT: 1. Status post unwitnessed fall. 2. Acute traumatic pain. 3. Left femoral fracture. 4. Left proximal humerus fracture. 5. Prolonged QTC. 6. History of dementia. 7. History of hypertension. 8. History of atrial fibrillation. 9. Hypoxia, improved. PLAN: Admit to trauma services, telemetry unit. Patient should have medical clearance perioperative ly. Patient should be n.p.o. after midnight. Orthopedic surgery has been notified and hope for oper ative intervention tomorrow. Perioperative pain management with p.o. and IV analgesics. Avoid QTc p rolonging medications. Patient's last echocardiogram was in March of this year demonstrating an EF of 65%-70%, mild aortic stenosis and no wall motion abnormalities. Gentle IV fluid hydration. Deep ve nous thrombosis prophylaxis and gastritis prophylaxis are appropriate. Trauma attending has been not ified of admission.
[2018-07-05 05:01] LABS: #Lymphocytes 0.5 thou/uL (1.20-3.40); #Monocytes 0.7 thou/uL (0.11-0.59); #Neutrophils 13.7 thou/uL (1.40-6.50); %Basophils 0.2 % (0.0-1.0); %Eosinophils 0.1 % (0.0-10.0); %Lymphocytes 3.4 % (21.0-51.0); %Monocytes 4.4 % (0.0-10.0); Hemoglobin 11.5 g/dL (12.0-16.0); Mean Corpuscular Hemoglobin 28.9 pg (27.0-31.0); Mean Corpuscular Volume 90.5 fL (78.0-98.0); Mean Platelet Volume 8.1 fL (7.4-10.4); Platelet Count 173 thou/uL (130-400); RBC Distribution Width 13.6 % (11.5-14.5); Red Blood Cell (RBC) Count 3.96 mill/uL (4.20-5.40); White Blood Cell (WBC) Count 14.9 thou/uL (4.8-10.8)
[2018-07-05 05:18] LABS: Anion Gap 16 mmol/L (10-20); BUN (Urea Nitrogen) 15 mg/dL (9.8-20.1); Calc. Creatinine Clearance 31 mL/min (70-130); Calcium 8.4 mg/dL (7.8-10.44); Carbon Dioxide 18 mmol/L (23-31); Chloride 105 mmol/L (98-107); Estimated GFR-MDRD 62; Glucose 183 mg/dL (83-110); Phosphorus 3.6 mg/dL (2.3-4.7); Potassium 3.8 mmol/L (3.5-5.1); Sodium 135 mmol/L (136-145)
[2018-07-05] MEDS ORDERED: Amiodarone 200 MG TAB PO SCH (09:00)
[2018-07-05] MEDS: Lisinopril 10 MG TAB PO SCH (09:22)
[2018-07-05] MEDS: Famotidine/PF 20 mg/2ml Vial SLOW IVP SCH (09:22)
--- NOTE | 2018-07-05 09:25 | PDOC.PN ---
- Subjective Encounter Start Date: 07/05/18 Encounter Start Time: 09:22 Ms. Self was seen today in follow-up of Fall with left femur fracture. She is comfortable, and denies pain in her hip. She also denies chest pain or difficulty breathing. Her grandaughter is at the bedside, and tells me she sees Dr. Paz on a regular basis, and saw him 2 weeks ago. She is not on anticoagulation for AFIB due to risk of falls. - Objective Resuscitation Status: Resuscitation Status DNR:Do Not Resuscitate MAR Reviewed: Yes Vital Signs & Weight: Vital Signs (12 hours) Temp Pulse Resp BP Pulse Ox 07/05/18 08:07 98 07/05/18 08:05 63 14 99 07/05/18 07:39 100 07/05/18 07:00 98.6 F 62 15 121/59 L 100 07/05/18 03:44 98.2 F 69 14 133/70 99 07/05/18 02:04 100 07/04/18 23:16 100 Weight Weight 96 lb 4.8 oz I&O: 07/04/18 07/05/18 07/06/18 06:59 06:59 06:59 Intake Total 415 Output Total 120 Balance 295 Result Diagrams: 07/05/18 03:36 07/05/18 03:36 Additional Labs: Accuchecks 07/04/18 17:28 POC Glucose 214 H Phys Exam - Physical Examination HEENT: PERRLA Respiratory: no wheezing, no rales, no rhonchi, clear to auscultation bilateral Cardiovascular: RRR, no significant murmur, no rub Gastrointestinal: soft, non-tender, no distention, positive bowel sounds Musculoskeletal: no edema Dx/Plan (1) Hypertension Code(s): I10 - ESSENTIAL (PRIMARY) HYPERTENSION Status: Chronic (2) Atrial fibrillation Code(s): I48.91 - UNSPECIFIED ATRIAL FIBRILLATION Status: Chronic (3) Subclinical hypothyroidism Code(s): E03.9 - HYPOTHYROIDISM, UNSPECIFIED Status: Chronic (4) Fracture of neck of left femur Code(s): S72.002A - FRACTURE OF UNSP PART OF NECK OF LEFT FEMUR, INIT Status: Acute - Plan * Atrial fibrillation- her heart rate is controlled- continue amiodarone, and Metoprolol * HTN- blood pressure is stable * Elevated TSH- her TSH is elevated but the free T4 is normal. This likely represents Subclinical Hypothyroidism, and requires no specific treatment- observation, and close follow-up as an outpatient * Femur Fracture- I would anticipate surgical repair, and given her history she was ambulatory at home. She does not give a history of angina, or symptoms of heart failure. I suspect the risk of not doing surgery would out weight performing surgery .
--- NOTE | 2018-07-05 11:12 | CON ---
DATE OF CONSULTATION: 07/05/2018 REQUESTING PHYSICIAN: Trauma Services. CONSULTING PHYSICIAN: Jason Li M.D. REASON FOR ADMISSION: Left proximal humerus fracture and left hip fracture. HISTORY OF PRESENT ILLNESS: This is an 87-year-old female who presented to the [facility] status post unwitnessed fall. The patient has a history of dementia and lives at home with her grandmarilee smaayoa. Granddaughter is currently at bedside. She states that the patient has living quarters within he house. Her heard her grandmother call for help and crawled to the door. The patient was u nable to bear weight on her left lower extremity. She was brought by private vehicle to the emergenc y room where she was evaluated and found to have a left femoral neck fracture and a left proximal hum erus fracture. We have been consulted for this reason. Currently, at bedside the patient is sleepin g heavily. She is difficult to arouse. The majority of history is obtained from the granddaughter a t bedside. Granddaughter does report that the patient has fallen multiple times recently, most signi ficantly about a month ago where she believes she broke her tailbone. She has been sitting on a donu t pillow at home. PAST MEDICAL HISTORY: Significant for dementia, hypertension, atrial fibrillation and a remote histo ry of ovarian cancer. PAST SURGICAL HISTORY: Significant for right hip surgery and hysterectomy. SOCIAL HISTORY: The patient lives at home with granddaughter and grandson son-in-law. Denies any to bacco or illicit drug use. FAMILY HISTORY: Reviewed and noncontributory. REVIEW OF SYSTEMS: Unobtainable secondary to the patient's current state. PHYSICAL EXAMINATION: VITAL SIGNS: Temperature 98.6 degrees, pulse 63, respiratory rate 14, blood pressure 121/59. GENERAL: The patient is asleep. She is difficult to arouse. She is in no acute distress. Per nurs ing staff, she has not had any recent medications. HEENT: Head is normocephalic, atraumatic. NECK: Supple. Trachea is midline. Breathing is nonlabored. EXTREMITIES: The left upper extremity was evaluated. There is some ecchymosis present along the pro ximal humerus. Skin is intact. I am able to move her arm about while she is sleeping. She does marisa daelaida slightly to discomfort. I have seen her move all digits of the left upper extremity. Evaluation of the left lower extremity shows a negative log roll exam. I am able to passively flex and extend at the hip as well as the knee without any discomfort elicited. Skin is intact over the left lower e xtremity. No significant soft tissue swelling, ecchymosis, or skin lesions are noted. The patient d oes not awaken with any movement of the left lower extremity. Evaluation of the right lower extremit y is equal to the left lower extremity. I am able to passively move her hip and her knee without any discomfort elicited. No signs of injury. RADIOGRAPHIC FINDINGS: Including views of the left hip show evidence for a femoral neck fracture. T his is slightly displaced. This appears to possibly be a subacute or old fracture. X-rays of the le ft humerus show evidence of a fracture of the greater trochanter. There is slight displacement of th e fracture site. This does extend into the surgical neck of the humerus. ASSESSMENT AND PLAN: Status post fall with left proximal humerus fracture and left femoral neck frac ture which is likely subacute. PLAN: At this point, I have discussed the patient's care with the granddaughter at bedside, who is a [facility] medical power of insurance defense attorney. The left proximal humerus fracture is nonsurgical and will be treated conservatively. The patient will wear a sling when out of bed. She will be limited by her own pain . No surgical intervention is warranted for this fracture. With regards to the left hip, I am able to passively move her without awakening her from a deep sleep. I believe this fracture is likely fro m her fall approximately 1 month ago and exacerbated by her recent fall. I have discussed this with Dr. Li. We would like to see how she does with physical therapy given that this is likely an old fracture. We will let her weightbear as tolerated to the left lower extremity. No surgical inte rvention is planned at this time.
--- NOTE | 2018-07-05 13:47 | PRG ---
DATE OF SERVICE: 07/05/2018 SUBJECTIVE: Mrs. Self is very confused this morning. OBJECTIVE: CHEST: Clear. HEART: She has got irregular rate on heart exam. ABDOMEN: Soft, nontender. ischemia. ASSESSMENT: History of fall. She has a left proximal humerus fracture and left hip fracture. PLAN: Ortho is going to attempt nonoperative treatment at this time. Trauma Service will continue t o see her.
--- NOTE | 2018-07-05 13:53 | CON ---
DATE OF CONSULTATION: 07/05/2018 HISTORY OF PRESENT ILLNESS: The patient is an 87-year-old woman with history of atrial fibrillation who had a fall. The patient has a history of atrial fibrillation. She was last hospitalized and rikki trina on amiodarone. The patient has a history of multiple falls and not placed on anticoagulation the rapy. The patient was found to have evidence of a femoral neck hip fracture. The patient denies hav ing any chest pain or dyspnea. PAST MEDICAL HISTORY: 1. Atrial fibrillation. 2. Hypertension. 3. Dementia. 4. Ovarian carcinoma. PAST SURGICAL HISTORY: Right hip surgery, hysterectomy. ALLERGIES: PSEUDOEPHEDRINE and SUDAFED. MEDICATIONS: Amiodarone 200 b.i.d., metoprolol 50 daily, memantine 5 daily, and lisinopril 10 daily. PHYSICAL EXAMINATION: GENERAL: This is a thin woman in no acute distress who is confused. VITAL SIGNS: Blood pressure of 121/59. NECK: No jugular venous distention. LUNGS: Clear to auscultation. HEART: Regular rate and rhythm, normal S1, S2. ABDOMEN: Nondistended. EXTREMITIES: Showed trace edema. LABORATORY DATA AND IMAGING: Sodium 135, potassium 3.8, chloride 105, bicarbonate 18, BUN 15, creati nine is 0.87. White blood cell count was 14.9, hemoglobin 11.5, hematocrit 35.9. Her platelets are 173. Her EKG revealed sinus bradycardia, first degree AV block, prolonged QTC interval. IMPRESSION: 1. Hip fracture. 2. Atrial fibrillation. 3. Hypertension. 4. Dementia. This patient has had a hip fracture. Her heart rate is low and she is on too high dose of amiodarone . We will discontinue metoprolol and decrease the dose of her amiodarone. We will check the patient . We will follow this patient with you through her hospitalization. Her TSH was 8.37.
[2018-07-05] MEDS: Enoxaparin Sodium 30 MG/0.3 ML SYRINGE SC SCH (20:32)
[2018-07-05] MEDS ORDERED: Metoprolol Tartrate 5 MG/5 ML VIAL IVP SCH (23:45)
[2018-07-06] MEDS: traMADol HCl 50 MG TAB PO SCH ×4 (00:11→16:13)
[2018-07-06 04:18] LABS: Anion Gap 13 mmol/L (10-20); BUN (Urea Nitrogen) 22 mg/dL (9.8-20.1); Calc. Creatinine Clearance 33 mL/min (70-130); Calcium 8.3 mg/dL (7.8-10.44); Carbon Dioxide 18 mmol/L (23-31); Chloride 108 mmol/L (98-107); Estimated GFR-MDRD 65; Glucose 122 mg/dL (83-110); Magnesium 1.8 mg/dL (1.6-2.6); Potassium 3.7 mmol/L (3.5-5.1); Sodium 135 mmol/L (136-145)
[2018-07-06 04:36] LABS: #Eosinphils 0.1 thou/uL (0.0-0.7); #Lymphocytes 0.9 thou/uL (1.20-3.40); #Monocytes 0.4 thou/uL (0.11-0.59); #Neutrophils 8.6 thou/uL (1.40-6.50); %Basophils 0.1 % (0.0-1.0); %Eosinophils 0.9 % (0.0-10.0); %Lymphocytes 9.4 % (21.0-51.0); %Monocytes 4.2 % (0.0-10.0); %Neutrophils 85.4 % (42.0-75.0); Hemoglobin 12.3 g/dL (12.0-16.0); Mean Corpuscular HGB CONC 29.1 g/dL (32.0-36.0); Mean Corpuscular Hemoglobin 25.9 pg (27.0-31.0); Mean Platelet Volume 8.7 fL (7.4-10.4); Platelet Count 100 thou/uL (130-400); RBC Distribution Width 13.9 % (11.5-14.5); Red Blood Cell (RBC) Count 4.76 mill/uL (4.20-5.40)
[2018-07-06] MEDS: Ketorolac Tromethamine 30 MG/ML VIAL IVP SCH (06:02)
[2018-07-06] MEDS: Lisinopril 10 MG TAB PO SCH (08:40)
[2018-07-06] MEDS ORDERED: Amiodarone 200 MG TAB PO SCH (09:00)
[2018-07-06] MEDS ORDERED: Amiodarone HCl 150 MG in Dextrose 5% in Water 100 ML IVPB SCH (09:15)
[2018-07-06] MEDS: Sodium Chloride 0.9% 1,000 ML IV SCH (11:16)
[2018-07-06] MEDS: Famotidine/PF 20 mg/2ml Vial SLOW IVP SCH (11:16)
--- NOTE | 2018-07-06 11:16 | PRG ---
DATE OF SERVICE: 07/06/2018 SUBJECTIVE: This is an 87-year-old female, hospital day #3 status post mechanical fall resulting in a proximal humerus fracture with evidence of a chronic left hip fracture. The patient was seen and e valuated by speech language pathology yesterday and found to be unsafe for oral intake. She remains altered, although more awake today. Per discussion with patient's granddaughter over the phone, her mental status is completely abnormal in comparison with her baseline. Upon our evaluation this manan mcnally, the patient is resting in bed in no acute distress. She has been seen and evaluated by Cardiolog y and cardiac medications are being adjusted. OBJECTIVE: VITAL SIGNS: Temperature 98.8, pulse 76, respirations 20, O2 sat 95% on room air, blood pressure 160 /79. GENERAL: Elderly appearing female in no acute distress, resting in bed. PULMONARY: Normal work of breathing. Symmetric rise. CARDIOVASCULAR: Regular rate and rhythm. GASTROINTESTINAL: Abdomen is soft, nontender, nondistended. GENITOURINARY: Guaman is in place. MUSCULOSKELETAL: Left upper extremity with limited range of motion secondary to pain. NEURO: No focal deficit is noted, although the patient's speech is nonsensical at this time. ASSESSMENT: 1. Status post unwitnessed ground level fall. 2. Left proximal humerus fracture. 3. Left hip fracture. 4. Acute traumatic pain. 5. Altered mental status/encephalopathy. 6. Hypoxic respiratory failure, improving. 7. Elevated prolactin, unclear etiology. 8. Failed CORRECTIONAL FACILITY PSYCHIATRIST evaluation with high risk for aspiration. PLAN: Have a Dobbhoff tube placed and start tube feeding for nutrition. MRI brain given the patient 's history of atrial fibrillation without anticoagulation and persistent altered mental status. Cont inue PT and OT. Per Orthopedic Surgery, both of her injuries are nonoperative at this time. Palliat darby Care is following given patient's multiple comorbidities. Discontinue Gu[place]. Continue to follow Cardiology and Hospital Medicine recommendations. A.m. labs. Plan of care was discussed with the isela khalil's granddaughter over the phone and all questions were answered at the time of this dictation. The patient was seen and evaluated with trauma attending.
--- NOTE | 2018-07-06 11:17 | RAD ---
KUB: Date: 07/06/18 HISTORY: Dobbhoff tube placement. FINDINGS: Exam was specifically done for Dobbhoff tube placement. The Dobbhoff tube is seen in the left upper q uadrant of the abdomen and appears to be in the stomach. IMPRESSION: Dobbhoff feeding tube within the stomach. POS: [facility]
[2018-07-06] MEDS: Acetaminophen 1,000 MG in Premix Bag 1 BAG IVPB SCH ×2 (11:23→17:28)
--- NOTE | 2018-07-06 12:33 | PDOC.PN ---
- Subjective Encounter Start Date: 07/06/18 Encounter Start Time: 12:30 Ms. Self was seen today in follow-up of altered mental status. and recent fall with humerus, and femur fracture on the right. She seems more confused today than yesterday. She did not do well on her swallowing evaluation. She was mumbling to me, and did not open her eyes much. - Objective Resuscitation Status: Resuscitation Status DNR:Do Not Resuscitate MAR Reviewed: Yes Vital Signs & Weight: Vital Signs (12 hours) Temp Pulse Pulse Pulse Pulse Resp BP 07/06/18 11:44 99.4 F 18 07/06/18 10:12 85 77 82 138/77 07/06/18 08:00 07/06/18 07:51 68 14 07/06/18 07:42 98.8 F 76 20 07/06/18 04:00 98.9 F 67 16 BP BP BP Pulse Ox Pulse Ox 07/06/18 11:44 146/75 H 92 L 07/06/18 10:12 136/65 146/75 H 100 07/06/18 08:00 94 L 07/06/18 07:51 07/06/18 07:42 160/79 H 95 07/06/18 04:00 148/71 H 94 L Weight Admit Weight 96 lb 4.8 oz Weight 96 lb 4.8 oz I&O: 07/05/18 07/06/18 07/07/18 06:59 06:59 06:59 Intake Total 1161 920 Output Total 345 300 Balance 816 620 Result Diagrams: 07/06/18 03:40 07/06/18 03:40 Phys Exam - Physical Examination HEENT: PERRLA Respiratory: no wheezing, no rales, no rhonchi, clear to auscultation bilateral Cardiovascular: no significant murmur, no rub, irregular no gallop Gastrointestinal: soft, non-tender, no distention, positive bowel sounds Musculoskeletal: no edema Neurological: moves all 4 limbs Deviation from normal: oriented to person only Dx/Plan (1) Altered mental status Code(s): R41.82 - ALTERED MENTAL STATUS, UNSPECIFIED Status: Acute (2) Hypertension Code(s): I10 - ESSENTIAL (PRIMARY) HYPERTENSION Status: Chronic (3) Atrial fibrillation Code(s): I48.91 - UNSPECIFIED ATRIAL FIBRILLATION Status: Chronic (4) Subclinical hypothyroidism Code(s): E03.9 - HYPOTHYROIDISM, UNSPECIFIED Status: Chronic (5) Fracture of neck of left femur Code(s): S72.002A - FRACTURE OF UNSP PART OF NECK OF LEFT FEMUR, INIT Status: Acute (6) Fracture of humerus, left, closed Code(s): S42.302A - UNSP FRACTURE OF SHAFT OF HUMERUS, LEFT ARM, INIT Status: Acute - Plan * Altered Mental status- Delirium versus acute cerebral event- MRI was planned, but she has the DHT in place, and not sure if she could lay still for the test- could consider repeat CT scan. She may have uncontrolled pain as a possibility for the delirium. * AFIB- her heart rate is controlled. Medication adjusted per Cardiology * HTN- blood pressure is within an acceptable range * Elevated TSH with normal Free T4- either subclinical hypothyroidism, or Euthyroid sick syndrome- no treatment is needed * Femur and humerus fracture- these will be treated conservatively * Dysphagia- DHT feeding for now, re-assess in a few dyas.
[2018-07-06] MEDS ORDERED: Gadobenate Dimeglumine 529 MG/1 ML (20ML VIAL) ONE (14:15)
[2018-07-06] MEDS ORDERED: Haloperidol Lactate 5 MG/ML VIAL SLOW IVP PRN (16:39)
[2018-07-06] MEDS: Lorazepam 2 MG/ML VIAL SLOW IVP PRN (16:55)
--- NOTE | 2018-07-06 19:05 | MRI ---
MRI BRAIN WITH AND WITHOUT CONTRAST: DATE: 07/06/18 TIME: 5:30 p.m. HISTORY: 87-year-old female with altered mental status. COMPARISON: No prior MRIs of the brain. TECHNIQUE: Multiple sequences obtained in axial, sagittal, and coronal planes; pre and post IV injection of gado linium-based contrast agent: 8 mL of Multihance. FINDINGS: There are several tiny foci of several millimeters in size each, of mildly restricted diffusion, cons istent with subacute lacunar infarctions, in the following locations: left thalamus, left basal gangl ia, left gomez radiata close to the left frontal periventricular white matter, and right anterior ba harsh ganglia/external capsule. In addition to these, there are old infarctions, including small to moderate sized right posterior c erebellum, adjacent multiple tiny ones in the right cerebellar hemisphere, lacunes in right basal hank glia/gomez radiata (small), and tiny lacune at right thalamus. There is no acute intra-axial hemorrhage. No mass effect or midline shift. No obstructive hydrocephal us. There is no abnormal enhancement, mass, mass effect, midline shift, obstructive hydrocephalus or extra-axial fluid collection. There is multilevel degenerative disc disease in the cervical spine. IMPRESSION: 1. Evidence for several tiny subacute lacunar infarctions at bilateral corpus striatum including basal ganglia, and left thalamus. 2. Multiple old lacunar infarctions, small and tiny, in right corpus striatum, right thalamus, a nd multiple in right cerebellum. 3. Moderate sized old infarction in right cerebellum. 4. High grade cervical spondylosis. LIANA Yanez POS: KRISTOFER
--- NOTE | 2018-07-06 20:05 | RAD ---
RADIOGRAPH ABDOMEN 1 VIEW: 07/06/18 at 6:40 p.m. HISTORY: Dobhoff tube placement in 87-year-old female. FINDINGS: Dobhoff feeding tube descends, overlapping the thoracic and entire lumbar spine. Its distal portion i s looped over the L3 through L5-S1 levels at midline, and the distal tip is pointing superiorly and t o the left overlying the L3 vertebral body. IMPRESSION: Dobhoff feeding tube as described above, overlying the lower abdomen and upper pelvis. Injection of g astrografin into the Dobhoff feeding tube followed by repeat KUB, may be useful to determine whether this is in a very ptotic stomach or in a different location. POS: KRISTOFER
[2018-07-06] MEDS: Enoxaparin Sodium 30 MG/0.3 ML SYRINGE SC SCH (21:52)
[2018-07-07] MEDS: Acetaminophen 1,000 MG in Premix Bag 1 BAG IVPB SCH ×3 (00:24→11:37)
[2018-07-07] MEDS: traMADol HCl 50 MG TAB PO SCH ×5 (01:43→23:11)
[2018-07-07] MEDS ORDERED: Metoprolol Tartrate 5 MG/5 ML VIAL IVP SCH (03:30)
[2018-07-07 04:42] LABS: Anion Gap 13 mmol/L (10-20); BUN (Urea Nitrogen) 17 mg/dL (9.8-20.1); Calc. Creatinine Clearance 37 mL/min (70-130); Calcium 8.3 mg/dL (7.8-10.44); Carbon Dioxide 16 mmol/L (23-31); Chloride 108 mmol/L (98-107); Estimated GFR-MDRD 74; Glucose 111 mg/dL (83-110); Phosphorus 2.8 mg/dL (2.3-4.7); Sodium 133 mmol/L (136-145)
[2018-07-07] MEDS: Sodium Chloride 0.9% 1,000 ML IV SCH ×2 (05:09→18:05)
[2018-07-07 06:50] LABS: #Basophils 0.1 thou/uL (0.0-0.2); #Eosinphils 0.4 thou/uL (0.0-0.7); #Lymphocytes 1.4 thou/uL (1.20-3.40); #Monocytes 0.5 thou/uL (0.11-0.59); #Neutrophils 7.2 thou/uL (1.40-6.50); %Basophils 0.7 % (0.0-1.0); %Eosinophils 4.2 % (0.0-10.0); %Lymphocytes 14.9 % (21.0-51.0); %Monocytes 5.7 % (0.0-10.0); %Neutrophils 74.5 % (42.0-75.0); Mean Corpuscular HGB CONC 32.1 g/dL (32.0-36.0); Mean Corpuscular Hemoglobin 28.5 pg (27.0-31.0); Mean Corpuscular Volume 88.6 fL (78.0-98.0); Mean Platelet Volume 8.5 fL (7.4-10.4); Platelet Count 142 thou/uL (130-400); RBC Distribution Width 13.7 % (11.5-14.5); White Blood Cell (WBC) Count 9.6 thou/uL (4.8-10.8)
[2018-07-07] MEDS ORDERED: Amiodarone HCl 150 MG in Dextrose 5% in Water 100 ML IVPB SCH (08:00)
[2018-07-07] MEDS ORDERED: Clopidogrel Bisulfate 75 MG TAB ONE (09:01)
--- NOTE | 2018-07-07 09:07 | PDOC.PN ---
- Subjective Encounter Start Date: 07/07/18 Encounter Start Time: 09:05 Ms. Self was seen today in follow-up of medical management following fall. He is still a bit confused, she does not have any complaints. She appears comfortable. - Objective Resuscitation Status: Resuscitation Status DNR:Do Not Resuscitate MAR Reviewed: Yes Vital Signs & Weight: Vital Signs (12 hours) Temp Pulse Resp BP Pulse Ox 07/07/18 08:18 98.6 F 117 H 21 H 167/104 H 95 07/07/18 08:01 110 H 20 07/07/18 04:00 97.3 F L 87 16 157/92 H 2 L 07/07/18 00:00 97.8 F 105 H 20 128/87 99 Weight Admit Weight 96 lb 4.8 oz Weight 96 lb 4.8 oz I&O: 07/06/18 07/07/18 07/08/18 06:59 06:59 06:59 Intake Total 920 2297 Output Total 300 1800 Balance 620 497 Result Diagrams: 07/07/18 03:55 07/07/18 03:55 Phys Exam - Physical Examination HEENT: PERRLA, sclera anicteric Respiratory: no wheezing, no rales, no rhonchi, clear to auscultation bilateral Cardiovascular: no rub, irregular heart rate is variable, + murmur systolic, no gallop Gastrointestinal: soft, non-tender, no distention, positive bowel sounds Musculoskeletal: no edema + bruising on the left upper extremity Dx/Plan (1) Acute cerebrovascular accident (CVA) Code(s): I63.9 - CEREBRAL INFARCTION, UNSPECIFIED Status: Acute (2) Dysphagia following cerebrovascular accident Code(s): I69.391 - DYSPHAGIA FOLLOWING CEREBRAL INFARCTION Status: Acute (3) Altered mental status Code(s): R41.82 - ALTERED MENTAL STATUS, UNSPECIFIED Status: Acute (4) Hypertension Code(s): I10 - ESSENTIAL (PRIMARY) HYPERTENSION Status: Chronic (5) Atrial fibrillation Code(s): I48.91 - UNSPECIFIED ATRIAL FIBRILLATION Status: Chronic (6) Subclinical hypothyroidism Code(s): E03.9 - HYPOTHYROIDISM, UNSPECIFIED Status: Chronic (7) Fracture of neck of left femur Code(s): S72.002A - FRACTURE OF UNSP PART OF NECK OF LEFT FEMUR, INIT Status: Acute (8) Fracture of humerus, left, closed Code(s): S42.302A - UNSP FRACTURE OF SHAFT OF HUMERUS, LEFT ARM, INIT Status: Acute - Plan * Altered mental status likely from acute CVA. MRI results were noted. Will start aspirin therapy, and check her lipid panel. Will start a statin empirically. Consult the Stroke team. * Dysphagia- as a result of CVA- continue DHT feeding for now,continue speech therapy, - re-evaluate swallow in a few dyas, and if it is not improved will need to consider PEG * HTN- her blood pressure is a bit elevated- will defer to Cardiology * AFIB- adjustments are being made with regards to her medications, continue to hold anticoagulation based on her falls * Humerus and Femur fracture on the Left- continue conservative treatment * The patient was living at home prior to admission- with these new events she may require placement. Will place a consult for Case Management
[2018-07-07] MEDS: Lisinopril 10 MG TAB PO SCH (09:09)
[2018-07-07] MEDS: Amiodarone 200 MG TAB PO SCH ×2 (09:09→20:52)
[2018-07-07] MEDS: Senokot 8.6 MG TAB PO SCH (09:10)
[2018-07-07] MEDS: Polyethylene Glycol 3350 17 GM Packet PER TUBE SCH (09:10)
[2018-07-07] MEDS: Famotidine/PF 20 mg/2ml Vial SLOW IVP SCH (09:46)
[2018-07-07 11:36] LABS: Cardiac Risk 2.9 (Less than 4.5)
--- NOTE | 2018-07-07 12:04 | PRG ---
DATE OF SERVICE: 07/07/2018 SUBJECTIVE: Ms. 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 The patie nt suffered left hip and left proximal humerus fractures. Outpatient surgery has recommended nonoperative intervention. The patient remains on no vasopressors, inotropic support. She has poor oral intake. OBJECTIVE: VITAL SIGNS: This morning includes blood pressure 113/78, pulse 88, respiratory rate is 12, temperat ure is 98.5 degrees Fahrenheit, oxygen saturation is 95% on 2 liters by nasal cannula oxygen. HEART: Reveals regular rate and rhythm. LUNGS: Clear to auscultation bilaterally. ABDOMEN: Soft, nontender, nondistended. NEUROLOGIC: Patient is confused at baseline. Otherwise she has no other focal neurologic deficits p resent. LABORATORY DATA: Laboratory findings today includes CBC with 9,600 white blood cells, hemoglobin and hematocrit are stable at 10.0 and 31.0 respectively. Platelet count is 142,000. Metabolic profile; sodium 133, potassium is 4.0, chloride is 108, bicarbonate 16, BUN 17, creatinine 0.74, glucose is 1 11. Magnesium and phosphorus are 2.0 and 2.8 respectively. IMPRESSION: 1. Post-injury day #3, status post fall. 2. Left proximal humerus and left hip fractures being managed nonoperatively. PLAN: Palliative care consultation to evaluate the patient for comfort care measures as no other ope rative intervention is warranted in this patient given a significant history of senile dementia. Phy sical and occupational therapy will be only as tolerated. The patient is hemodynamically stable and will be transferred to general surgical floor at this time.
[2018-07-07] MEDS: Enoxaparin Sodium 30 MG/0.3 ML SYRINGE SC SCH (20:52)
[2018-07-07] MEDS ORDERED: Atorvastatin Calcium 10 MG TAB PER TUBE SCH (21:00)
[2018-07-08] MEDS: traMADol HCl 50 MG TAB PO SCH ×2 (05:28→13:54)
[2018-07-08] MEDS ORDERED: Famotidine 20 MG TAB PER TUBE SCH (09:00)
[2018-07-08] MEDS ORDERED: Aspirin 325 MG TAB PER TUBE SCH (09:00)
[2018-07-08] MEDS: Lorazepam 2 MG/ML VIAL SLOW IVP PRN (09:31)
[2018-07-08] MEDS: Amiodarone 200 MG TAB PO SCH (09:41)
[2018-07-08] MEDS: Lisinopril 10 MG TAB PO SCH (09:41)
[2018-07-08] MEDS: Senokot 8.6 MG TAB PO SCH (09:41)
[2018-07-08] MEDS: Polyethylene Glycol 3350 17 GM Packet PER TUBE SCH (09:42)
--- NOTE | 2018-07-08 10:32 | PDOC.PN ---
- Subjective Encounter Start Date: 07/08/18 Encounter Start Time: 10:31 Ms. Self was seen today in follow-up of acute CVA, and recent humerus and femur fracture. She is confused this morning. She does not appear to be in pain. - Objective Resuscitation Status: Resuscitation Status DNR:Do Not Resuscitate MAR Reviewed: Yes Vital Signs & Weight: Vital Signs (12 hours) Temp Pulse Resp BP Pulse Ox 07/08/18 07:33 97.6 F 105 H 20 111/86 97 07/08/18 07:25 99 07/08/18 07:22 100 15 99 07/08/18 04:00 98.0 F 81 17 109/72 100 07/08/18 00:40 97.7 F 81 18 129/74 100 Weight Admit Weight 96 lb 4.8 oz Weight 96 lb 4.8 oz I&O: 07/07/18 07/08/18 07/09/18 06:59 06:59 06:59 Intake Total 2297 1280 Output Total 1800 Balance 497 1280 Result Diagrams: 07/07/18 03:55 07/07/18 03:55 Phys Exam - Physical Examination HEENT: PERRLA Respiratory: no wheezing, no rales, no rhonchi, clear to auscultation bilateral Cardiovascular: no significant murmur, no rub, irregular Gastrointestinal: soft, non-tender, no distention, positive bowel sounds Musculoskeletal: no edema Dx/Plan (1) Acute cerebrovascular accident (CVA) Code(s): I63.9 - CEREBRAL INFARCTION, UNSPECIFIED Status: Acute (2) Dysphagia following cerebrovascular accident Code(s): I69.391 - DYSPHAGIA FOLLOWING CEREBRAL INFARCTION Status: Acute (3) Altered mental status Code(s): R41.82 - ALTERED MENTAL STATUS, UNSPECIFIED Status: Acute (4) Hypertension Code(s): I10 - ESSENTIAL (PRIMARY) HYPERTENSION Status: Chronic (5) Atrial fibrillation Code(s): I48.91 - UNSPECIFIED ATRIAL FIBRILLATION Status: Chronic (6) Subclinical hypothyroidism Code(s): E03.9 - HYPOTHYROIDISM, UNSPECIFIED Status: Chronic (7) Fracture of neck of left femur Code(s): S72.002A - FRACTURE OF UNSP PART OF NECK OF LEFT FEMUR, INIT Status: Acute (8) Fracture of humerus, left, closed Code(s): S42.302A - UNSP FRACTURE OF SHAFT OF HUMERUS, LEFT ARM, INIT Status: Acute - Plan * Acute CVA- she has altered mental status * Dysphagia- I spoke with the Speech Therapist, and she did not do much better today than yesterday- I discussed this with her daughter, and the different options for care. * AFIB- her heart rate is controlled * HTN- blood pressure is stable. * Huerus and Femur fractures are being treated conservatively
--- NOTE | 2018-07-08 13:33 | PRG ---
DATE OF SERVICE: 07/08/2018 SUBJECTIVE: Ms. Self is an 87-year-old woman with history of senile dementia of Alzheimer's type, who was admitted following a fall where she sustained a left proximal humerus and left hip fractures . She has been evaluated by Orthopedic Surgery. Nonoperative management was recommended. The patie nt was also noted with multiple intracerebral infarctions. She remains confused and unable to tolera te oral intake. Palliative medicine consult has been initiated. I did discuss with the patient's granddaughter, who was bedside. She is the patient's power of hat binder. The patient has remained fairly stable since t his admission. OBJECTIVE: VITAL SIGNS: This morning includes blood pressure 111/86, pulse 105, respiration rate 20, temperatur e 97.6 degrees Fahrenheit, oxygen saturation 97% on 2 liters by nasal cannula oxygen. HEART: Reveals regular rate and rhythm. CHEST: Clear to auscultation bilaterally. Breathing regular and unlabored. ABDOMEN: Soft, nontender, nondistended. IMPRESSION: 1. Status post fall with left proximal humerus and left hip fractures requiring nonoperative managem ent. 2. Multiple intracerebral ischemic strokes. PLAN: As discussed with the patient's power of hat binder, Palliative Medicine has seen the patient an d the family wishes to pursue comfort care measures only at this time. Trauma Surgery will sign off and defer all further medical management to the Hospitalist Service, as well as a Palliative Medicine. The above findings and plan have been discussed with the patient's granddaughter/power of hat binder. Her name is Abby Drake at bedside. I did answer all her questions.
[2018-07-08 15:35] VITALS: BP 103/86; TEMP 98.9
--- NOTE | 2018-07-09 15:50 | EKG ---
Test Reason : Blood Pressure : / mmHG Vent. Rate : 058 BPM Atrial Rate : 058 BPM P-R Int : 264 ms QRS Dur : 096 ms QT Int : 568 ms P-R-T Axes : 087 083 075 degrees QTc Int : 557 ms Sinus bradycardia with 1st degree A-V block Nonspecific ST and T wave abnormality Prolonged QT Abnormal ECG Confirmed by ISAIAS CONWAY M.D. ([id number]), video editor ANGY REESE ([id number]) on 07/09/2018 3:49:53 PM Referred By: Confirmed By:ISAIAS CONWAY M.D.
--- NOTE | 2018-07-09 19:25 | DIS ---
DATE OF ADMISSION: 07/04/2018 DATE OF DISCHARGE: 07/08/2018 DISCHARGE DISPOSITION: Inpatient hospice. DISCHARGE DIAGNOSES: 1. Acute cerebrovascular accident. 2. Atrial fibrillation. 3. Dysphagia secondary to an acute stroke. 4. Subclinical hypothyroidism. 5. Left femur fracture. 6. Left humerus fracture. 7. Dementia. DISCHARGE MEDICATIONS: Lisinopril 10 mg daily, metoprolol extended release 50 mg daily, amiodarone 2 00 mg twice a day, Namenda 5 mg daily, aspirin 81 mg daily, Lipitor 10 mg daily. CODE STATUS: DNR. ALLERGIES: PSEUDOEPHEDRINE. PROCEDURES DONE DURING ADMISSION: The patient had a CT scan of the abdomen and pelvis showing an imp acted angulated left subcapital femoral neck fracture, status post right hip osteoplasty. The patien t had a CT scan of the cervical spine and there was no evidence of acute fracture or traumatic sublux ation. The patient had a CT scan of the brain showing no acute intracranial findings. There is invo lutional changes and chronic ischemic white matter changes. The patient had an echocardiogram, which demonstrated an ejection fraction of 55%-60%. There were some mildly dilated left atrium, mildly en larged right atrial size, [id number] tricuspid regurgitation. The patient had an MRI of the brain showing evidence for tiny subacute lacunar infarcts at the bilateral corpus striatum including the basal ganglion and left thalamus. There were multiple old lacunar infarcts, which were small and tiny in the right corpus striatum and right thalamus, and multiple in the right cerebellum. There w as a moderate sized old infarction in the right cerebellum, high-grade cervical spondylosis. HOSPITAL COURSE: Ms. Self is a pleasant 87-year-old female, who had been living independently at home when she suffered a fall. The family found her on the floor and she seemed a bit altered at th at time. She was brought to the emergency room and evaluated and found to have a left femoral neck f racture, as well as a left proximal humerus fracture. She was admitted on the Trauma Service. The h ospitalists were consulted for medical management. After evaluation by Orthopedic Service, they deci ded that nonsurgical management of the fracture was the best option. It was of the Orthopedics opini on that the left femoral fracture was likely chronic and not acute and the humerus fracture would req uire no specific treatment. Unfortunately, during the course of her admission, she became altered ab out 2 days into the hospital stay. She has a known history of atrial fibrillation. She also was not ed to have some dysphagia. For this reason, an MRI of the brain was obtained. It was determined brea t she had multiple new infarcts. This was likely the cause of the confusion as well as her dysphagia . She had several speech therapy evaluations during her hospital stay and unfortunately, her speech did not improve much over the course of the next couple of days. I sat down with the patient's grand daughter, who is her medical power of traffic law attorney as well as the Trauma Team, and the granddaughter stat ed that the patient would have never wanted to have a feeding tube placed and given the multiple frac tures, the chronic atrial fibrillation which we were unable to anticoagulate her for, as well as her advanced age and some mild dementia, the decision was made to transition her to comfort care only. She was therefore transferred to the inpatient hospice on 07/08/2018.
== END 2018-07-08 17:43 | disposition hospice, inpatient (51) | DRG 562 ==
LOC: ERS 17:21 → IMCU/EMU 23:08 → T4-A 07-08 16:31
PROVIDERS: ADMIT Specialist; ATTEND Specialist
DX: S42.202A Unspecified fracture of upper end of left humerus, initial encounter for closed fracture (principal); S72.012A Unspecified intracapsular fracture of left femur, initial encounter for closed fracture; I63.9 Cerebral infarction, unspecified; G93.40 Encephalopathy, unspecified; J96.91 Respiratory failure, unspecified with hypoxia; R64 Cachexia; Z68.1 Body mass index [BMI] 19.9 or less, adult; Z66 Do not resuscitate; R13.10 Dysphagia, unspecified; I10 Essential (primary) hypertension; I48.2 Chronic atrial fibrillation; E03.9 Hypothyroidism, unspecified; Z91.81 History of falling; Z85.43 Personal history of malignant neoplasm of ovary; G30.1 Alzheimer's disease with late onset; F02.80 Dementia in other diseases classified elsewhere, unspecified severity, without behavioral disturbance, psychotic disturbance, mood disturbance, and anxiety; I07.1 Rheumatic tricuspid insufficiency; M48.02 Spinal stenosis, cervical region
CPT/HCPCS: 36415; 36416; 51701; 70450; 70553; 71045; 71260; 72125; 72170; 74018; 74177; 80048; 80053; 80061; 80306; 80307; 81003; 81015; 82330; 82550; 82553; 82803; 82805; 83605; 83690; 83735; 83880; 84100; 84146; 84439; 84443; 84484; 85025; 85610; 87040; 87086; 93005; 93306; 94640; 96361; 96374; 96375; A4216; A4353; A9579; G8978-GP-CM; G8979-GP-CK; G8987-GO-CM; G8988-GO-CL; G8996-GN-CN; G8997-GN-CK; J0131; J0282; J1650; J1885; J2060; J2310; J2405; J7070; J7620; S0028

== ENCOUNTER 2018-07-08 17:57 | Inpatient (IN) | payer OTHER ==
[2018-07-08] MEDS ORDERED: Ondansetron HCl/PF 4 MG/2 ML Vial IVP PRN (18:10)
[2018-07-08] MEDS ORDERED: Scopolamine 1.5 mg/72 hour Patch TOP PRN (18:10)
[2018-07-08] MEDS ORDERED: Lorazepam 2 MG/ML VIAL IM SCH (18:15)
[2018-07-08] MEDS: Morphine 10 MG/0.5 ML ORAL SYRINGE SL PRN (19:02)
[2018-07-08] MEDS: Morphine 2 MG/ML SYRINGE SLOW IVP SCH (22:21)
[2018-07-08] MEDS: Lorazepam 2 MG/ML VIAL SLOW IVP SCH (22:29)
[2018-07-09] MEDS: Lorazepam 2 MG/ML VIAL SLOW IVP SCH ×4 (00:48→20:52)
[2018-07-09] MEDS: Morphine 2 MG/ML SYRINGE SLOW IVP SCH ×8 (02:42→23:19)
--- NOTE | 2018-07-09 12:28 | PDOC.PN ---
- Subjective Encounter Start Date: 07/09/18 Encounter Start Time: 12:24 Ms. Self was seen in follow-up for Hospice care. She has a history of recent fall, with fracture of the left hurerus, and left head of the femur, She has a history of Aftrial fibrillation, and unfortunately developed an acute CVA, which has left her with confusion, and dysphagia. Prior to the CVA, there were no operative plans for the fractures. She has been transitioned to hospice care. She is laying in bed and appears comfortable. Her granddaughter and family are at bedside. - Objective Resuscitation Status: Resuscitation Status DNR:Do Not Resuscitate MAR Reviewed: Yes Vital Signs & Weight: Vital Signs (12 hours) Temp Pulse Resp BP Pulse Ox 07/09/18 07:52 98.1 F 105 H 16 151/103 H 97 Phys Exam - Physical Examination HEENT: PERRLA Respiratory: no wheezing, no rales, no rhonchi, clear to auscultation bilateral Cardiovascular: RRR, no significant murmur, no rub Gastrointestinal: soft, non-tender, no distention, positive bowel sounds Musculoskeletal: edema present + bruising of the left upper extremity Dx/Plan (1) Acute cerebrovascular accident (CVA) Code(s): I63.9 - CEREBRAL INFARCTION, UNSPECIFIED Status: Acute (2) Altered mental status Code(s): R41.82 - ALTERED MENTAL STATUS, UNSPECIFIED Status: Acute (3) Dysphagia following cerebrovascular accident Code(s): I69.391 - DYSPHAGIA FOLLOWING CEREBRAL INFARCTION Status: Acute (4) Fracture of humerus, left, closed Code(s): S42.302A - UNSP FRACTURE OF SHAFT OF HUMERUS, LEFT ARM, INIT Status: Acute (5) Fracture of neck of left femur Code(s): S72.002A - FRACTURE OF UNSP PART OF NECK OF LEFT FEMUR, INIT Status: Acute - Plan * Continue Pain control with Morphine for the Femur and Humerus fractures. * Ativan for anxiety * Hospice Team is also following
[2018-07-09] MEDS: Lorazepam 2 MG/ML VIAL SLOW IVP PRN (16:18)
[2018-07-09] MEDS: Morphine 10 MG/0.5 ML ORAL SYRINGE SL PRN (23:20)
[2018-07-10] MEDS: Morphine 2 MG/ML SYRINGE SLOW IVP SCH ×6 (03:20→23:31)
[2018-07-10] MEDS: Lorazepam 2 MG/ML VIAL SLOW IVP PRN (04:01)
[2018-07-10] MEDS: Lorazepam 2 MG/ML VIAL SLOW IVP SCH ×2 (09:14→21:21)
--- NOTE | 2018-07-10 10:16 | PDOC.PN ---
- Subjective Encounter Start Date: 07/10/18 Encounter Start Time: 10:16 -: old records requested/rev CC: Pain Sub: Pt is currently lethargic. Pain controlled - Objective Resuscitation Status: Resuscitation Status DNR:Do Not Resuscitate Vital Signs & Weight: Vital Signs (12 hours) Temp Pulse Resp BP Pulse Ox 07/10/18 08:00 99 07/10/18 07:47 97.9 F 91 12 159/101 H 99 Phys Exam - Physical Examination Constitutional: NAD HEENT: moist MMs Neck: no JVD Respiratory: no wheezing, no rales, no rhonchi Cardiovascular: RRR, no significant murmur, no rub Gastrointestinal: soft, non-tender decrease range of motion lethargic, not following commands -: positive echymoses Dx/Plan - Plan * . x/Plan (1) Acute cerebrovascular accident (CVA) Code(s): I63.9 - CEREBRAL INFARCTION, UNSPECIFIED Status: Acute (2) Altered mental status Code(s): R41.82 - ALTERED MENTAL STATUS, UNSPECIFIED Status: Acute (3) Dysphagia following cerebrovascular accident Code(s): I69.391 - DYSPHAGIA FOLLOWING CEREBRAL INFARCTION Status: Acute (4) Fracture of humerus, left, closed Code(s): S42.302A - UNSP FRACTURE OF SHAFT OF HUMERUS, LEFT ARM, INIT Status: Acute (5) Fracture of neck of left femur Code(s): S72.002A - FRACTURE OF UNSP PART OF NECK OF LEFT FEMUR, INIT Status: Acute - Plan * Continue Pain control with Morphine for the Femur and Humerus fractures. * Ativan for anxiety * Hospice Team is also following * will monitor respiratory status closely D/W RN & Pt grand daughter
[2018-07-11] MEDS: Morphine 2 MG/ML SYRINGE SLOW IVP SCH ×6 (02:57→22:07)
[2018-07-11] MEDS: Lorazepam 2 MG/ML VIAL SLOW IVP PRN (03:55)
[2018-07-11] MEDS: Lorazepam 2 MG/ML VIAL SLOW IVP SCH ×2 (08:19→20:21)
--- NOTE | 2018-07-11 13:37 | PDOC.PN ---
- Subjective Encounter Start Date: 07/11/18 Encounter Start Time: 12:30 -: non-verbal, old records requested/rev Pt seen and examined, chart reviewed in its entirety, this is my first visit wi th this patient admitted to inpatient hospice 3 days ago. comfortable, sleeping, less agitated now than earleir today. no other needs voiced by family ROS not obtainable - Objective Resuscitation Status: Resuscitation Status DNR:Do Not Resuscitate MAR Reviewed: Yes Vital Signs & Weight: Vital Signs (12 hours) Temp Pulse Resp BP Pulse Ox 07/11/18 08:23 98 F 113 H 18 173/90 H 100 07/11/18 08:00 100 Phys Exam - Physical Examination Constitutional: NAD HEENT: PERRLA, oral pharynx no lesions MM dry Neck: supple Respiratory: no wheezing, no rales, clear to auscultation bilateral tachy, regular Gastrointestinal: soft, non-tender, positive bowel sounds Musculoskeletal: no edema Lymphatic: no nodes Dx/Plan (1) Acute cerebrovascular accident (CVA) Code(s): I63.9 - CEREBRAL INFARCTION, UNSPECIFIED Status: Acute (2) Dysphagia following cerebrovascular accident Code(s): I69.391 - DYSPHAGIA FOLLOWING CEREBRAL INFARCTION Status: Acute (3) Fracture of femoral neck, right Code(s): S72.001A - FRACTURE OF UNSP PART OF NECK OF RIGHT FEMUR, INIT Status : Acute Comment: s/p surgical repair (4) Fracture of humerus, left, closed Code(s): S42.302A - UNSP FRACTURE OF SHAFT OF HUMERUS, LEFT ARM, INIT Status: Acute Qualifiers: Encounter type: initial encounter Humerus Location: surgical neck Fracture morphology: 2-part Fracture alignment: nondisplaced Qualified Code( s): S42.225A - 2-part nondisplaced fracture of surgical neck of left humerus, initial encounter for closed fracture - Plan cont current plan of care, plan discussed w/ family, social services manager * . continue inpatient hospice care. pt barely drinking
[2018-07-12] MEDS: Morphine 2 MG/ML SYRINGE SLOW IVP SCH ×6 (03:11→21:27)
[2018-07-12] MEDS: Lorazepam 2 MG/ML VIAL SLOW IVP SCH ×2 (08:30→20:23)
--- NOTE | 2018-07-12 13:41 | PDOC.PN ---
- Subjective Encounter Start Date: 07/12/18 Encounter Start Time: 09:55 pt comfortable, no acute event soverngiht, no new needs. pt nonverbal ROs not obtainable - Objective Resuscitation Status: Resuscitation Status DNR:Do Not Resuscitate MAR Reviewed: Yes Vital Signs & Weight: Vital Signs (12 hours) Temp Pulse Resp BP Pulse Ox 07/12/18 08:00 99.4 F 131 H 16 163/92 H 97 Phys Exam - Physical Examination Constitutional: NAD HEENT: PERRLA, moist MMs, sclera anicteric, oral pharynx no lesions Neck: no nodes, no JVD, supple Respiratory: clear to auscultation bilateral tachy, reg Gastrointestinal: soft, non-tender, positive bowel sounds Musculoskeletal: no edema Lymphatic: no nodes Skin: no rash, normal turgor, cap refill <2 seconds Dx/Plan (1) Acute cerebrovascular accident (CVA) Code(s): I63.9 - CEREBRAL INFARCTION, UNSPECIFIED Status: Acute (2) Dysphagia following cerebrovascular accident Code(s): I69.391 - DYSPHAGIA FOLLOWING CEREBRAL INFARCTION Status: Acute (3) Fracture of femoral neck, right Code(s): S72.001A - FRACTURE OF UNSP PART OF NECK OF RIGHT FEMUR, INIT Status : Acute Comment: s/p surgical repair (4) Fracture of humerus, left, closed Code(s): S42.302A - UNSP FRACTURE OF SHAFT OF HUMERUS, LEFT ARM, INIT Status: Acute Qualifiers: Encounter type: initial encounter Humerus Location: surgical neck Fracture morphology: 2-part Fracture alignment: nondisplaced Qualified Code( s): S42.225A - 2-part nondisplaced fracture of surgical neck of left humerus, initial encounter for closed fracture Comment: continue [facility] hosp[facility] care. - Plan cont current plan of care, plan discussed w/ family * .
[2018-07-12] MEDS: Lorazepam 2 MG/ML VIAL SLOW IVP PRN ×2 (15:47→16:04)
[2018-07-12] MEDS ORDERED: Lorazepam 2 MG/ML VIAL SLOW IVP SCH (16:45)
[2018-07-13] MEDS: Morphine 2 MG/ML SYRINGE SLOW IVP SCH ×9 (00:19→23:47)
[2018-07-13] MEDS: Lorazepam 2 MG/ML VIAL SLOW IVP SCH ×3 (07:56→21:36)
[2018-07-14] MEDS: Morphine 2 MG/ML SYRINGE SLOW IVP SCH ×7 (03:00→21:20)
[2018-07-14] MEDS: Lorazepam 2 MG/ML VIAL SLOW IVP SCH ×3 (08:39→17:49)
[2018-07-14] MEDS ORDERED: Lorazepam 2 MG/ML VIAL SLOW IVP PRN ×2 (10:57→11:11)
[2018-07-15] MEDS: Lorazepam 2 MG/ML VIAL SLOW IVP SCH ×6 (00:34→23:55)
[2018-07-15] MEDS: Morphine 2 MG/ML SYRINGE SLOW IVP SCH ×9 (00:34→23:52)
--- NOTE | 2018-07-15 09:43 | PDOC.PN ---
- Subjective Encounter Start Date: 07/13/18 Encounter Start Time: 11:00 pt comfortable, no family at bedside, no acute overnight events. Pt unresponsive. not drinking now ROS not obtainable - Objective Resuscitation Status: Resuscitation Status DNR:Do Not Resuscitate MAR Reviewed: Yes Vital Signs & Weight: Vital Signs (12 hours) Temp Pulse Resp BP Pulse Ox 07/15/18 08:00 97 07/15/18 07:21 98.4 F 90 16 104/65 97 Phys Exam - Physical Examination Constitutional: NAD Neck: no JVD coarse bibasilar rales, upper gurgling tachy, regular Gastrointestinal: soft, positive bowel sounds Musculoskeletal: no edema Lymphatic: no nodes Skin: no rash, normal turgor, cap refill <2 seconds Dx/Plan (1) Acute cerebrovascular accident (CVA) Code(s): I63.9 - CEREBRAL INFARCTION, UNSPECIFIED Status: Acute (2) Dysphagia following cerebrovascular accident Code(s): I69.391 - DYSPHAGIA FOLLOWING CEREBRAL INFARCTION Status: Acute (3) Fracture of femoral neck, right Code(s): S72.001A - FRACTURE OF UNSP PART OF NECK OF RIGHT FEMUR, INIT Status : Acute Comment: s/p surgical repair (4) Fracture of humerus, left, closed Code(s): S42.302A - UNSP FRACTURE OF SHAFT OF HUMERUS, LEFT ARM, INIT Status: Acute Qualifiers: Encounter type: initial encounter Humerus Location: surgical neck Fracture morphology: 2-part Fracture alignment: nondisplaced Qualified Code( s): S42.225A - 2-part nondisplaced fracture of surgical neck of left humerus, initial encounter for closed fracture Comment: continue [facility] care. - Plan cont current plan of care, social media executive * .
--- NOTE | 2018-07-15 09:45 | PDOC.PN ---
- Subjective Encounter Start Date: 07/14/18 Encounter Start Time: 09:45 daughter at bedside, discussed current plan. she has small children at home, no plan to move pt to home hospice. no acute vents, no changes. pt comfortable ROS not obtainable - Objective Resuscitation Status: Resuscitation Status DNR:Do Not Resuscitate MAR Reviewed: Yes Vital Signs & Weight: Vital Signs (12 hours) Temp Pulse Resp BP Pulse Ox 07/15/18 08:00 97 07/15/18 07:21 98.4 F 90 16 104/65 97 Phys Exam - Physical Examination Constitutional: NAD Neck: no JVD Respiratory: clear to auscultation bilateral Cardiovascular: no significant murmur tachy, regular Gastrointestinal: soft, positive bowel sounds Musculoskeletal: no edema Lymphatic: no nodes Skin: no rash Dx/Plan (1) Acute cerebrovascular accident (CVA) Code(s): I63.9 - CEREBRAL INFARCTION, UNSPECIFIED Status: Acute (2) Dysphagia following cerebrovascular accident Code(s): I69.391 - DYSPHAGIA FOLLOWING CEREBRAL INFARCTION Status: Acute (3) Fracture of femoral neck, right Code(s): S72.001A - FRACTURE OF UNSP PART OF NECK OF RIGHT FEMUR, INIT Status : Acute Comment: s/p surgical repair (4) Fracture of humerus, left, closed Code(s): S42.302A - UNSP FRACTURE OF SHAFT OF HUMERUS, LEFT ARM, INIT Status: Acute Qualifiers: Encounter type: initial encounter Humerus Location: surgical neck Fracture morphology: 2-part Fracture alignment: nondisplaced Qualified Code( s): S42.225A - 2-part nondisplaced fracture of surgical neck of left humerus, initial encounter for closed fracture Comment: continue [facility] hospice care. - Plan cont current plan of care, plan discussed w/ family * . continue [facility] hospice care
--- NOTE | 2018-07-15 09:48 | PDOC.PN ---
- Subjective Encounter Start Date: 07/15/18 Encounter Start Time: 09:47 -: non-verbal comfortable, no changes, no acute events. pt comfortable - Objective Resuscitation Status: Resuscitation Status DNR:Do Not Resuscitate MAR Reviewed: Yes Vital Signs & Weight: Vital Signs (12 hours) Temp Pulse Resp BP Pulse Ox 07/15/18 08:00 97 07/15/18 07:21 98.4 F 90 16 104/65 97 Phys Exam - Physical Examination Constitutional: NAD comfortable, no resp distress upper girgling mild Gastrointestinal: soft, positive bowel sounds Musculoskeletal: no edema unresponsive Lymphatic: no nodes Skin: no rash Dx/Plan (1) Acute cerebrovascular accident (CVA) Code(s): I63.9 - CEREBRAL INFARCTION, UNSPECIFIED Status: Acute (2) Dysphagia following cerebrovascular accident Code(s): I69.391 - DYSPHAGIA FOLLOWING CEREBRAL INFARCTION Status: Acute (3) Fracture of femoral neck, right Code(s): S72.001A - FRACTURE OF UNSP PART OF NECK OF RIGHT FEMUR, INIT Status : Acute Comment: s/p surgical repair (4) Fracture of humerus, left, closed Code(s): S42.302A - UNSP FRACTURE OF SHAFT OF HUMERUS, LEFT ARM, INIT Status: Acute Qualifiers: Encounter type: initial encounter Humerus Location: surgical neck Fracture morphology: 2-part Fracture alignment: nondisplaced Qualified Code( s): S42.225A - 2-part nondisplaced fracture of surgical neck of left humerus, initial encounter for closed fracture Comment: continue [facility] care. - Plan * .
[2018-07-15] MEDS ORDERED: Lorazepam 2 MG/ML VIAL SLOW IVP PRN ×2 (14:44→15:32)
[2018-07-16] MEDS: Morphine 2 MG/ML SYRINGE SLOW IVP SCH ×7 (02:58→21:20)
[2018-07-16] MEDS: Lorazepam 2 MG/ML VIAL SLOW IVP SCH ×6 (05:39→21:22)
--- NOTE | 2018-07-16 15:44 | PDOC.PN ---
- Subjective Encounter Start Date: 07/16/18 Encounter Start Time: 13:35 -: non-verbal family at bedside. pt comfortable, no agitation, nonverbal ROS not obtainable - Objective Resuscitation Status: Resuscitation Status DNR:Do Not Resuscitate MAR Reviewed: Yes Vital Signs & Weight: Vital Signs (12 hours) Temp Pulse Resp BP Pulse Ox 07/16/18 15:20 98.5 F 07/16/18 08:16 100.8 F H 110 H 17 114/72 99 I&O: 07/15/18 07/16/18 07/17/18 06:59 06:59 06:59 Output Total 150 Balance -150 Phys Exam - Physical Examination Constitutional: NAD membranes dry Neck: no JVD Respiratory: clear to auscultation bilateral tachy, irregular Gastrointestinal: soft Musculoskeletal: no edema Skin: no rash Dx/Plan (1) Acute cerebrovascular accident (CVA) Code(s): I63.9 - CEREBRAL INFARCTION, UNSPECIFIED Status: Acute (2) Dysphagia following cerebrovascular accident Code(s): I69.391 - DYSPHAGIA FOLLOWING CEREBRAL INFARCTION Status: Acute (3) Fracture of femoral neck, right Code(s): S72.001A - FRACTURE OF UNSP PART OF NECK OF RIGHT FEMUR, INIT Status : Acute Comment: s/p surgical repair (4) Fracture of humerus, left, closed Code(s): S42.302A - UNSP FRACTURE OF SHAFT OF HUMERUS, LEFT ARM, INIT Status: Acute Qualifiers: Encounter type: initial encounter Humerus Location: surgical neck Fracture morphology: 2-part Fracture alignment: nondisplaced Qualified Code( s): S42.225A - 2-part nondisplaced fracture of surgical neck of left humerus, initial encounter for closed fracture Comment: continue [facility] care. - Plan cont current plan of care * .
[2018-07-17] MEDS: Morphine 2 MG/ML SYRINGE SLOW IVP SCH ×2 (01:46→03:44)
[2018-07-17] MEDS: Lorazepam 2 MG/ML VIAL SLOW IVP SCH ×6 (01:49→21:04)
[2018-07-17] MEDS ORDERED: Morphine 4 MG/ML VIAL SLOW IVP SCH (03:45)
[2018-07-17] MEDS: Morphine 4 MG/ML VIAL SLOW IVP SCH ×6 (06:01→21:05)
--- NOTE | 2018-07-17 15:02 | PDOC.PN ---
- Subjective Encounter Start Date: 07/17/18 Encounter Start Time: 10:50 -: non-verbal no sig changes, no acute events, pt comfortable, nonverbal. family voices no new needs ROS not obtianable - Objective Resuscitation Status: Resuscitation Status DNR:Do Not Resuscitate MAR Reviewed: Yes Vital Signs & Weight: Vital Signs (12 hours) Temp Pulse Resp BP Pulse Ox 07/17/18 08:30 98.5 F 105 H 16 107/54 L 97 07/17/18 08:26 96 I&O: 07/16/18 07/17/18 07/18/18 06:59 06:59 06:59 Output Total 150 50 Balance -150 -50 Phys Exam - Physical Examination Constitutional: NAD Respiratory: clear to auscultation bilateral tachy, regular, no murmur Gastrointestinal: soft, positive bowel sounds Musculoskeletal: edema present not moving anything on command Lymphatic: no nodes Skin: no rash, normal turgor, cap refill <2 seconds Dx/Plan (1) Acute cerebrovascular accident (CVA) Code(s): I63.9 - CEREBRAL INFARCTION, UNSPECIFIED Status: Acute Comment: [facility] hospice care (2) Dysphagia following cerebrovascular accident Code(s): I69.391 - DYSPHAGIA FOLLOWING CEREBRAL INFARCTION Status: Acute (3) Fracture of femoral neck, right Code(s): S72.001A - FRACTURE OF UNSP PART OF NECK OF RIGHT FEMUR, INIT Status : Acute Comment: s/p surgical repair (4) Fracture of humerus, left, closed Code(s): S42.302A - UNSP FRACTURE OF SHAFT OF HUMERUS, LEFT ARM, INIT Status: Acute Qualifiers: Encounter type: initial encounter Humerus Location: surgical neck Fracture morphology: 2-part Fracture alignment: nondisplaced Qualified Code( s): S42.225A - 2-part nondisplaced fracture of surgical neck of left humerus, initial encounter for closed fracture Comment: continue [facility] hospice care. - Plan cont current plan of care * .
[2018-07-18] MEDS: Morphine 4 MG/ML VIAL SLOW IVP SCH ×9 (00:33→23:45)
[2018-07-18] MEDS: Lorazepam 2 MG/ML VIAL SLOW IVP SCH ×6 (00:36→21:14)
--- NOTE | 2018-07-18 23:05 | PDOC.PN ---
- Subjective Encounter Start Date: 07/18/18 Encounter Start Time: 18:00 -: non-verbal Patient seen and examined. Appears comfortable. No overnight events - Objective Resuscitation Status: Resuscitation Status DNR:Do Not Resuscitate MAR Reviewed: Yes Vital Signs & Weight: Vital Signs (12 hours) Temp Pulse Resp BP Pulse Ox 07/18/18 19:28 98.5 F 84 18 93/62 97 I&O: 07/17/18 07/18/18 07/19/18 06:59 06:59 06:59 Output Total 50 100 Balance -50 -100 Phys Exam - Physical Examination Constitutional: NAD Respiratory: no rales Coarse BS B/L Cardiovascular: RRR Gastrointestinal: soft Dx/Plan (1) Hospice care Status: Acute Comment: for Acute CVA/Afib/Dysphagia/Femur fracture - Plan DVT proph w/SCDs * Cont supportive care * Cont current meds as below Review of Systems - Review of Systems Other: Cannot be obtained due to current mentation. - Medications/Allergies Allergies/Adverse Reactions: Allergies Allergy/AdvReac Type Severity Reaction Status Date / Time pseudoephedrine Allergy Verified 07/04/18 23:22 Medications: Current Medications Lorazepam (Ativan) 2 mg SLOW IVP Q4H PRN PRN Reason: .ANXIETY/RESTLESSNESS Lorazepam (Ativan) 2 mg SLOW IVP Q4HR DONALD Last Admin: 07/18/18 21:14 Dose: 2 mg Morphine Sulfate (Morphine) 2 mg SLOW IVP Q3HR DONALD Last Admin: 07/18/18 21:16 Dose: 2 mg Ondansetron HCl (Zofran) 4 mg IVP Q6H PRN PRN Reason: Nausea/Vomiting Scopolamine (Transderm Scop) 3 mg TOP Q3D PRN PRN Reason: SECRETIONS Last Admin: 07/13/18 02:46 Dose: 3 mg Sodium Chloride (Flush - Normal Saline) 10 ml IVF Q12HR DONALD Last Admin: 07/18/18 08:49 Dose: 10 ml Sodium Chloride (Flush - Normal Saline) 10 ml IVF PRN PRN PRN Reason: Saline Flush Last Admin: 07/17/18 01:50 Dose: 10 ml
[2018-07-19] MEDS: Lorazepam 2 MG/ML VIAL SLOW IVP SCH ×5 (01:22→17:02)
[2018-07-19] MEDS: Morphine 4 MG/ML VIAL SLOW IVP SCH ×6 (03:13→17:02)
[2018-07-19 07:26] VITALS: BP 103/65; TEMP 99.6
[2018-07-19 14:31] VITALS: BMI 16.5
--- NOTE | 2018-07-19 18:41 | DS ---
SUMMARY DATE : 07/19/2018 at 1458. BRIEF HOSPITAL COURSE: The patient was an 87-year-old female who was admitted on July 04, 2018, with a diagnosis of fall. Her workup was consistent with acute CVA. On July 08, 2018, she was readmitted at this facility for inpatient hospice. She received hospice care through [facility]. Dennis guzman today at 1458. Family notified. FINAL DIAGNOSES: 1. Acute cerebrovascular accident. 2. Atrial fibrillation. 3. 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 4. Subclinical hypothyroidism. 5. Left femur and humerus fracture. 6. Dementia.
== END 2018-07-19 14:58 | disposition expired | DRG 951 ==
LOC: T4-A 17:57
PROVIDERS: ADMIT Internal Medicine; ATTEND Internal Medicine
DX: Z51.5 Encounter for palliative care (principal); I69.991 Dysphagia following unspecified cerebrovascular disease; R13.10 Dysphagia, unspecified; I10 Essential (primary) hypertension; I48.91 Unspecified atrial fibrillation; E02 Subclinical iodine-deficiency hypothyroidism; S72.002D Fracture of unspecified part of neck of left femur, subsequent encounter for closed fracture with routine healing; S42.202D Unspecified fracture of upper end of left humerus, subsequent encounter for fracture with routine healing; W19.XXXD Unspecified fall, subsequent encounter; F03.90 Unspecified dementia, unspecified severity, without behavioral disturbance, psychotic disturbance, mood disturbance, and anxiety; Z66 Do not resuscitate; F41.9 Anxiety disorder, unspecified; Z88.8 Allergy status to other drugs, medicaments and biological substances; G89.11 Acute pain due to trauma; I35.0 Nonrheumatic aortic (valve) stenosis
CPT/HCPCS: J2060; J2270